=== PATIENT | female | born 1930 | race Caucasian/White ===

== ENCOUNTER 2018-12-24 10:20 | Inpatient (IN) | payer MEDICARE ==
[~2018-12-24] VITALS: Ht 157.5 cm; Wt 54.8 kg
[~2018-12-24 10:20] MED LIST: ACET325 PO; ALBU90OI INH; ALBU90OI61 INH; ALEN70 PO; ALPR.5; ALPR.5 PO; AMBIEN CR; AMLO5 PO; ASPI81CH PO; AZIT500 PO; BUDE10.22 INH; BUSP5; Bactrim 400-801 EACH PO; CEFA250SU PO; CEFU500 PO; CENTRUM SILVER1 EAC2 PO; CIPR500 PO; COUMADIN; Caltrate Plus1 EACH PO; Carvedilol6.25 MG PO; Colace250 MG PO; Coreg12.5 MG PO; DOXE25; DOXY100 PO; Dulcolax Stool100 MG PO; ESTMET; ESTRATEST; FAMO20 PO; FLUO20; Fosamax70 MG; HYDR1TAB94 PO; LEVFLO500; LEVSOD100; LEVSOD125 PO; LISI20; MEGE40SU PO; MEGE40T PO; MIRT30 PO; NITR.4TPA TOP; NYST100SU; Norco 10-325 T1 EACH PO; OXYC5 PO; Percocet 5-3251 EACH PO; Remeron45 MG PO; SIMV40 PO; Senna8.6 MG PO; Synthroid88 MCG PO; TAMO10 PO; TIOT18 INH; TRAM50 PO; TRIAZOLAM; Therapeutic M1 EAC5; Tylenol325 MG PO; UNKNOWN BP MED; Ventolin Soln3 ML INH; WARF1 PO; WARF4 PO; WARF5 PO; ZOLP10; ZOLP5 PO; Zocor20 MG PO; Zofran Odt4 MG SL; [UNRECOGNIZED DRUG - OTHER]
[2018-12-24 11:13] LABS: BASOPHILS ABSOLUTE AUTO 0.03 K/mm3 (0.00-0.23); BASOPHILS PERCENT AUTO 1 % (0-2); EOSINOPHILS ABSOLUTE AUTO 0.42 K/mm3 (0.00-0.68); EOSINOPHILS PERCENT AUTO 7 % (0-6); Hematocrit 41.3 % (33.0-51.0); Hemoglobin 13.3 g/dL (11.5-16.0); IMMATURE GRAN ABSOLUTE AUTO 0.02 K/mm3 (0.00-0.10); IMMATURE GRAN PERCENT AUTO 0 % (0-1); LYMPHOCYTES ABSOLUTE AUTO 1.04 K/mm3 (0.84-5.20); LYMPHOCYTES PERCENT AUTO 18 % (21-46); MONOCYTES ABSOLUTE AUTO 0.85 K/mm3 (0.16-1.47); MONOCYTES PERCENT AUTO 15 % (4-13); Mean Corpuscular HGB 31.2 pg (26.0-34.0); Mean Corpuscular HGB Conc 32.2 g/dL (31.5-36.5); Mean Corpuscular Volume 97 fL (80-100); Mean Platelet Volume 10.4 fL (9.1-12.4); NEUTROPHILS ABSOLUTE AUTO 3.37 K/mm3 (1.96-9.15); NEUTROPHILS PERCENT AUTO 59 % (41-73); Platelet Count 198 K/mm3 (150-400); RDW Coefficient Variation 13.7 % (11.7-14.2); RDW Standard Deviation 48.8 fL (35.1-46.3); Red Blood Cell Count 4.26 M/mm3 (3.80-5.20); White Blood Cell Count 5.73 K/mm3 (4.00-11.30)
[2018-12-24 11:37] LABS: Alanine Aminotransfer (ALT/SGP 22 U/L (12-78); Albumin, Blood 3.3 g/dL (3.4-5.0); Albumin/Globulin Ratio 0.9 (0.8-1.8); Alk Phos 71 U/L (50-136); Anion Gap 5 mmol/L (6-16); Aspartate Aminotrans (AST/SGOT 20 U/L (12-37); Bilirubin, Total 0.5 mg/dL (0.1-1.0); Blood Urea Nitrogen 18 mg/dL (8-24); Bun/Creatinine Ratio 26.8 (12.0-20.0); CO2, Blood 26 mmol/L (21-32); Calcium, Blood 8.9 mg/dL (8.5-10.1); Chloride, Blood 108 mmol/L (98-108); Creatinine, Blood 0.67 mg/dL (0.40-1.00); Globulin, Blood 3.7 g/dL (2.2-4.0); Glomerular Filtration Rate >60 (60-); Glucose, Blood 117 mg/dL (70-99); Potassium, Blood 4.1 mmol/L (3.5-5.5); Sodium, Blood 139 mmol/L (136-145); Troponin I <0.015 ng/mL (0.000-0.040)
[2018-12-24] MEDS ORDERED: ESZO2 PO (15:34)
[2018-12-24] MEDS ORDERED: WARF5 PO (15:36)
[2018-12-24] MEDS ORDERED: STIOLTO RESPIMAT4 GM INH (15:38)
[2018-12-24] MEDS ORDERED: Caltrate-600 W1 EACH PO (16:38)
[2018-12-24] MEDS ORDERED: Super B-50 Com1 EACH PO (16:39)
[2018-12-24 17:03] LABS: International Normalized Ratio 2.28; Prothrombin Time Results 22.4 Sec (9.7-11.5)
--- NOTE | 2018-12-24 19:35 | NUR ---
SHE ARRIVED TO 331 FROM THE ER AT 1735. SHE IS A&O AND STEADY ON HER FEET. HER IS WITH HER. SHE IS SOB WITH ANY ACTIVITY. BP HIGH ON ARRIVAL. COREG, COUMADIN AND IV LASIX HAVE BEEN STARTED. SHE IS [place]. AIR DIMINISHED BUT NO RALES OR WHEEZES HEARD. SHE WAS HUNGRY AND EATING DINNER SHORTLY AFTER ARRIVAL.TELE IS NSR. NO COMPLAINTS EXCEPT IT IS HARD FOR HER TO LAY DOWN.
[2018-12-25 03:13] LABS: BASOPHILS ABSOLUTE AUTO 0.04 K/mm3 (0.00-0.23); BASOPHILS PERCENT AUTO 1 % (0-2); EOSINOPHILS PERCENT AUTO 7 % (0-6); Hematocrit 45.6 % (33.0-51.0); IMMATURE GRAN ABSOLUTE AUTO 0.02 K/mm3 (0.00-0.10); IMMATURE GRAN PERCENT AUTO 0 % (0-1); LYMPHOCYTES PERCENT AUTO 17 % (21-46); MONOCYTES ABSOLUTE AUTO 1.14 K/mm3 (0.16-1.47); MONOCYTES PERCENT AUTO 15 % (4-13); Mean Corpuscular HGB 31.6 pg (26.0-34.0); Mean Corpuscular HGB Conc 32.9 g/dL (31.5-36.5); Mean Corpuscular Volume 96 fL (80-100); Mean Platelet Volume 10.3 fL (9.1-12.4); NEUTROPHILS ABSOLUTE AUTO 4.55 K/mm3 (1.96-9.15); NEUTROPHILS PERCENT AUTO 60 % (41-73); Platelet Count 224 K/mm3 (150-400); RDW Coefficient Variation 13.3 % (11.7-14.2); Red Blood Cell Count 4.74 M/mm3 (3.80-5.20); White Blood Cell Count 7.55 K/mm3 (4.00-11.30)
[2018-12-25 03:28] LABS: Anion Gap 6 mmol/L (6-16); Blood Urea Nitrogen 21 mg/dL (8-24); Bun/Creatinine Ratio 25.6 (12.0-20.0); CO2, Blood 29 mmol/L (21-32); Calcium, Blood 9.5 mg/dL (8.5-10.1); Chloride, Blood 103 mmol/L (98-108); Creatinine, Blood 0.82 mg/dL (0.40-1.00); Glomerular Filtration Rate >60 (60-); Glucose, Blood 98 mg/dL (70-99); Potassium, Blood 3.6 mmol/L (3.5-5.5); Sodium, Blood 138 mmol/L (136-145)
--- NOTE | 2018-12-25 05:11 | NUR ---
VSS, AFEBRILE, A/O, PT HAS BEEN C/O INSOMNIA AND SOB/EDWARD ALL NOC. PT WAS MEDICATED FOR INSOMNIA BEFORE MIDNIGHT, BUT THIS WAS INEFFECTIVE. PT HAS NOT SLEPT ALL NIGHT. PT OOB TO THE BR W/SBA, CAN BE IMPULSIVE AND NEEDS TO BE REMINDED TO CALL FOR HELP. PT HAS A FAIRLY STEADY GAIT, BUT REMAINS A HIGH FALL RISK DUE TO EDWARD. PT IS GETTING A BREATHING TREATMENT AT HER REQUEST. WILL REPORT TO ON-COMING SHIFT.
[2018-12-25 11:31] LABS: International Normalized Ratio 1.99; Prothrombin Time Results 19.8 Sec (9.7-11.5)
--- NOTE | 2018-12-25 19:37 | NUR ---
SHIFT SUMMARY PATIENT A&O X4, SBA TO BATHROOM. DENIES ANY PAIN OR NAUSEA. C/O SOB. O2 @ 1L TO KEEP SATS >90%. PATIENT WAS RUNNING 88-89 ON RA THIS AFTERNOON. MEDICATED PER Marlen MOON AT THE BEDSIDE. NO ACUTE CHANGES THIS SHIFT.
[2018-12-26 05:57] LABS: International Normalized Ratio 2.22; Prothrombin Time Results 21.9 Sec (9.7-11.5)
[2018-12-26 06:40] LABS: BASOPHILS ABSOLUTE AUTO 0.06 K/mm3 (0.00-0.23); BASOPHILS PERCENT AUTO 1 % (0-2); EOSINOPHILS ABSOLUTE AUTO 0.57 K/mm3 (0.00-0.68); EOSINOPHILS PERCENT AUTO 7 % (0-6); Hematocrit 47.3 % (33.0-51.0); Hemoglobin 15.7 g/dL (11.5-16.0); IMMATURE GRAN ABSOLUTE AUTO 0.06 K/mm3 (0.00-0.10); IMMATURE GRAN PERCENT AUTO 1 % (0-1); LYMPHOCYTES PERCENT AUTO 19 % (21-46); MONOCYTES ABSOLUTE AUTO 1.28 K/mm3 (0.16-1.47); MONOCYTES PERCENT AUTO 16 % (4-13); Mean Corpuscular HGB 31.5 pg (26.0-34.0); Mean Corpuscular HGB Conc 33.2 g/dL (31.5-36.5); Mean Corpuscular Volume 95 fL (80-100); Mean Platelet Volume 10.6 fL (9.1-12.4); NEUTROPHILS ABSOLUTE AUTO 4.61 K/mm3 (1.96-9.15); NEUTROPHILS PERCENT AUTO 57 % (41-73); Platelet Count 177 K/mm3 (150-400); RDW Coefficient Variation 13.5 % (11.7-14.2); RDW Standard Deviation 47.6 fL (35.1-46.3); Red Blood Cell Count 4.98 M/mm3 (3.80-5.20); White Blood Cell Count 8.08 K/mm3 (4.00-11.30)
[2018-12-26 06:58] LABS: Anion Gap 9 mmol/L (6-16); Blood Urea Nitrogen 30 mg/dL (8-24); Bun/Creatinine Ratio 32.3 (12.0-20.0); CO2, Blood 26 mmol/L (21-32); Calcium, Blood 9.1 mg/dL (8.5-10.1); Chloride, Blood 100 mmol/L (98-108); Creatinine, Blood 0.93 mg/dL (0.40-1.00); Glomerular Filtration Rate >60 (60-); Glucose, Blood 97 mg/dL (70-99); Potassium, Blood 3.9 mmol/L (3.5-5.5); Sodium, Blood 135 mmol/L (136-145)
--- NOTE | 2018-12-26 08:10 | NUR ---
88 year old Female who has hx CABG [address] and mitral valve replacement 2009 had echo done out pt December 20 with ejection fx of 54%. Wearing oxygen 2 l hs for noctural desats. Up with 1 assist to bathroom. Denies acute distress. continues on tel monitor with NSR, BBB with pvcs.
--- NOTE | 2018-12-26 18:49 | NUR ---
SHIFT SUMMARY LAURA WAS PUT ON A 1 LITER FLUID RESTRICTION TODAY, PT AWARE. COUGHING UP YELLOW SPUTUM, NEED SPUTUM CULTURE. DENIED PAIN. ON 1L AT REST. WALKED AROUND UNIT. DESATS TO 86 ON ROOM AIR IF AMBULATING. SBA. CARDIOLOGY CONSULT DONE. DAUGHTER IN LAW UPDATED. NEW PIV PLACED. AT BS FOR MOST OF THE DAY. WCTM
[2018-12-27 05:38] LABS: BASOPHILS ABSOLUTE AUTO 0.05 K/mm3 (0.00-0.23); BASOPHILS PERCENT AUTO 1 % (0-2); EOSINOPHILS ABSOLUTE AUTO 0.59 K/mm3 (0.00-0.68); EOSINOPHILS PERCENT AUTO 7 % (0-6); Hematocrit 46.4 % (33.0-51.0); Hemoglobin 15.1 g/dL (11.5-16.0); IMMATURE GRAN ABSOLUTE AUTO 0.03 K/mm3 (0.00-0.10); IMMATURE GRAN PERCENT AUTO 0 % (0-1); LYMPHOCYTES ABSOLUTE AUTO 1.09 K/mm3 (0.84-5.20); LYMPHOCYTES PERCENT AUTO 13 % (21-46); MONOCYTES ABSOLUTE AUTO 1.38 K/mm3 (0.16-1.47); MONOCYTES PERCENT AUTO 16 % (4-13); Mean Corpuscular HGB 31.1 pg (26.0-34.0); Mean Corpuscular HGB Conc 32.5 g/dL (31.5-36.5); Mean Corpuscular Volume 96 fL (80-100); Mean Platelet Volume 10.8 fL (9.1-12.4); NEUTROPHILS ABSOLUTE AUTO 5.37 K/mm3 (1.96-9.15); NEUTROPHILS PERCENT AUTO 63 % (41-73); Platelet Count 225 K/mm3 (150-400); RDW Coefficient Variation 13.3 % (11.7-14.2); RDW Standard Deviation 47.8 fL (35.1-46.3); Red Blood Cell Count 4.85 M/mm3 (3.80-5.20); White Blood Cell Count 8.51 K/mm3 (4.00-11.30)
[2018-12-27 05:54] LABS: International Normalized Ratio 2.93; Prothrombin Time Results 28.2 Sec (9.7-11.5)
[2018-12-27 06:01] LABS: Bun/Creatinine Ratio 40.1 (12.0-20.0); Calcium, Blood 9.2 mg/dL (8.5-10.1); Creatinine, Blood 0.97 mg/dL (0.40-1.00); Potassium, Blood 3.6 mmol/L (3.5-5.5)
--- NOTE | 2018-12-27 06:09 | NUR ---
PT continues sob and requiring 2 l nc to relieve SOB. She has rt middle lobe pneumonia on CXR on 12/24/18. On rocephin. Sputum sent for culture . denies pain, continues to be appropriate and ask for assist to go up to bathroom. Spouse in and supportive. Dtr in law is FRANCHISE DEVELOPMENT MANAGER and was updated on plan of care by day RN Lc. [facility]
--- NOTE | 2018-12-27 18:04 | NUR ---
NOTIFIED DR. ESPINOZA PT'S BP 85/48 AND [address] ESPINOZA SAID SHE WILL D/C LASIX AND TO ORDER 500ML BOLUS OF NORMAL SALINE. DR. ESPINOZA SAID TO CONTINUE TO MONITOR BP AND TO NOTIFY THE DOCTOR PLANT MAINTENANCE MANAGER IF BP STILL RUNNING LOW AFTER BOLUS IS COMPLETED. NO OTHER NEW ORDERS AT THIS TIME.
--- NOTE | 2018-12-27 19:04 | NUR ---
SHIFT SUMMARY- PT C/O BACK PAIN. MEDS GIVEN PER EMAR. PT DENIES N/V. REPORTS SOB. 94% ON 2L O2 NC. SBA TO THE BATHROOM. NOTIFIED DR. ESPINOZA PT'S BP 85/48 THIS PM. SEE PREVIOUS NOTE. NOTIFIED NIGHT RN DR. ESPINOZA SAID TO RECHECK PT'S BP AFTER BOLUS COMPLETE AND TO NOTIFY DRBernabe CRM COORDINATOR IF BP REMAINS LOW. SPOUSE AT BEDSIDE. NO OTHER SIGNIFICANT CHANGES THIS SHIFT.
--- NOTE | 2018-12-28 04:24 | NUR ---
SHIFT SUMMARY: PT HYPOTENSIVE EARLIER IN SHIFT, HOWEVER HAS SIGNIFICANTLY IMPROVED AFTER 500 CC FLUID BOLUS THAT FINISHED AT SHIFT CHANGE. LATEST BP OF 146/65. PT C/O CONSTANT DRY COUGH, ROBITUSSIN UNSUCCESSFUL. RECIEVED ORDER FOR TESSALON. ADMINISTERED ROBITUSSIN AND TESSALON TOGETHER WHICH PROVIDED LASTING RELIEF T/O TONIGHT. PT BECOMES SOB c EXERTION, CONT PULSE O2 DROPS DOWN TO LOW 80s WHILE AMBULATING TO THE BR. ON 2L VIA NC. LS WHEEZE AND COARSE T/O. ADMINISTERED XANAX AT BEDTIME FOR ANXIETY PER PT REQUEST. NO OTHER CHANGES TO REPORT. WILL CONT TO MONITOR AND PROVIDE CARE UNTIL PRESUMED BY ONCOMING RN.
[2018-12-28 05:37] LABS: BASOPHILS ABSOLUTE AUTO 0.05 K/mm3 (0.00-0.23); BASOPHILS PERCENT AUTO 1 % (0-2); EOSINOPHILS ABSOLUTE AUTO 0.45 K/mm3 (0.00-0.68); EOSINOPHILS PERCENT AUTO 6 % (0-6); Hematocrit 44.4 % (33.0-51.0); Hemoglobin 14.4 g/dL (11.5-16.0); IMMATURE GRAN ABSOLUTE AUTO 0.03 K/mm3 (0.00-0.10); IMMATURE GRAN PERCENT AUTO 0 % (0-1); LYMPHOCYTES ABSOLUTE AUTO 1.49 K/mm3 (0.84-5.20); LYMPHOCYTES PERCENT AUTO 21 % (21-46); MONOCYTES ABSOLUTE AUTO 1.17 K/mm3 (0.16-1.47); MONOCYTES PERCENT AUTO 17 % (4-13); Mean Corpuscular HGB Conc 32.4 g/dL (31.5-36.5); Mean Platelet Volume 10.4 fL (9.1-12.4); NEUTROPHILS PERCENT AUTO 55 % (41-73); Platelet Count 181 K/mm3 (150-400); RDW Coefficient Variation 13.4 % (11.7-14.2); RDW Standard Deviation 48.6 fL (35.1-46.3); White Blood Cell Count 6.99 K/mm3 (4.00-11.30)
[2018-12-28 05:40] LABS: Mean Corpuscular Volume 99 fL (80-100)
[2018-12-28 05:51] LABS: International Normalized Ratio 3.31; Prothrombin Time Results 31.5 Sec (9.7-11.5)
[2018-12-28 06:05] LABS: Albumin, Blood 3.2 g/dL (3.4-5.0); Albumin/Globulin Ratio 0.8 (0.8-1.8); Bilirubin, Total 0.3 mg/dL (0.1-1.0); Bun/Creatinine Ratio 31.5 (12.0-20.0); Calcium, Blood 8.7 mg/dL (8.5-10.1); Creatinine, Blood 1.65 mg/dL (0.40-1.00); Potassium, Blood 3.8 mmol/L (3.5-5.5); Total Protein, Blood 7.2 g/dL (6.4-8.2)
[2018-12-28 13:44] LABS: Adenovirus Not Detected (NOT DETECT); Bordetella pertussis Not Detected (NOT DETECT); Chlamydophila pneumoniae Not Detected (NOT DETECT); Coronavirus 229E Not Detected (NOT DETECT); Coronavirus HKU1 Not Detected (NOT DETECT); Coronavirus NL63 Not Detected (NOT DETECT); Coronavirus OC43 Not Detected (NOT DETECT); Human Metapneumovirus Not Detected (NOT DETECT); Human Rhinovirus/Enterovirus Not Detected (NOT DETECT); Influenza A Not Detected (NOT DETECT); Influenza A/2009-H1 Not Detected (NOT DETECT); Influenza A/H1 Not Detected (NOT DETECT); Influenza A/H3 Not Detected (NOT DETECT); Influenza B Not Detected (NOT DETECT); Mycoplasma pneumoniae Not Detected (NOT DETECT); Parainfluenza Virus 1 Not Detected (NOT DETECT); Parainfluenza Virus 2 Not Detected (NOT DETECT); Parainfluenza Virus 3 Detected (NOT DETECT); Parainfluenza Virus 4 Not Detected (NOT DETECT); Respiratory Syncytial Virus Not Detected (NOT DETECT)
--- NOTE | 2018-12-28 18:02 | NUR ---
END OF SHIFT SUMMARY: PT IS A&OX3. PT HAS BEEN CALM AND COOPERATIVE THROUGHT THIS SHIFT. PT'S HAS BEEN IN THE ROOM THROUGHOUT MOST OF THE DAY. PT HAS ALTERNATED SITTING ON THE EDGE OF THE BED AND SITTING IN THE BED. PT SAT IN CHAIR FOR ABOUT A HALF AN HOUR THIS AFTERNOON. PT HAS HAD COUGHING EPISODES THAT HAVE IMPROVED WITH R/T TREATMENT. PT HAS DENIED PAIN THIS SHIFT. O2 SAT 94-98 ON 2L. WILL CONTINUE TO MINITOR.
--- NOTE | 2018-12-28 18:22 | NUR ---
SN ASSESSMENT I WAS PRESENT DURING THE SN YOUNG'S ASSESSMENT AND AGREE WITH THE ASSESSMENT
[2018-12-29 05:15] LABS: BASOPHILS ABSOLUTE AUTO 0.06 K/mm3 (0.00-0.23); BASOPHILS PERCENT AUTO 1 % (0-2); EOSINOPHILS ABSOLUTE AUTO 0.76 K/mm3 (0.00-0.68); EOSINOPHILS PERCENT AUTO 13 % (0-6); Hematocrit 41.5 % (33.0-51.0); Hemoglobin 13.7 g/dL (11.5-16.0); IMMATURE GRAN ABSOLUTE AUTO 0.02 K/mm3 (0.00-0.10); IMMATURE GRAN PERCENT AUTO 0 % (0-1); LYMPHOCYTES ABSOLUTE AUTO 2.02 K/mm3 (0.84-5.20); LYMPHOCYTES PERCENT AUTO 34 % (21-46); MONOCYTES PERCENT AUTO 13 % (4-13); Mean Corpuscular HGB 31.9 pg (26.0-34.0); Mean Corpuscular Volume 97 fL (80-100); Mean Platelet Volume 10.5 fL (9.1-12.4); NEUTROPHILS PERCENT AUTO 39 % (41-73); Platelet Count 184 K/mm3 (150-400); RDW Coefficient Variation 13.6 % (11.7-14.2); RDW Standard Deviation 48.5 fL (35.1-46.3); Red Blood Cell Count 4.29 M/mm3 (3.80-5.20); White Blood Cell Count 5.96 K/mm3 (4.00-11.30)
[2018-12-29 05:32] LABS: International Normalized Ratio 3.14
[2018-12-29 05:34] LABS: Bun/Creatinine Ratio 42.9 (12.0-20.0); Calcium, Blood 8.7 mg/dL (8.5-10.1); Creatinine, Blood 1.19 mg/dL (0.40-1.00); Potassium, Blood 3.8 mmol/L (3.5-5.5)
--- NOTE | 2018-12-29 06:43 | NUR ---
SHIFT SUMMARY: PT W/O ACUTE CHANGES THRU THE NIGHT. ON 2L VIA NC AND O2 SATS REMAINING >92%. 98% AT REST; IN THE HIGH 80s c EXERTION. TREATED 1X FOR DRY COUGH c TESSALON AND ROBITUSSIN PER ORDERS; SEE EMAR. ADMINISTERED AMBIEN FOR SLEEP AID PER REQUEST. WILL CONT TO MONITOR AND PROVIDE CARE UNTIL RESUMED BY ONCOMING RN.
--- NOTE | 2018-12-29 18:06 | NUR ---
End of shift summary: Pt was awake, A&O throughout this shift. Pt is [place], calm, cooperative, and appropriate. Pt has had improved respiratory effort this shift, requesting only one breathing treatment from RT (3 on previous day). Pt has had family in the room for most of the shift. Pt has alternated sitting in bed and sitting on the side of the bed. Pt was weaned from O2 early this afternoon by Dr. Puckett, O2 stats dropped to 86 about 30 minutes later. Pt was placed back on 2L O2, reduced to 1L about an hour later. Dr. Puckett was notified and agreed. Pt states no additional needs at this time. Will continue to monitor.
[2018-12-30 05:38] LABS: International Normalized Ratio 2.07; Prothrombin Time Results 20.5 Sec (9.7-11.5)
--- NOTE | 2018-12-30 07:41 | NUR ---
SHIFT SUMMARY: PT REMIAINS ON 1L VIA NC. ROOM AIR TRIAL UNSUCCESSFUL, PT O2 SATS DROP DOWN TO 80s AND PT BECOMES SOB. PT SOB c ALL ACTIVITY AND SHORT DISTANCES OF AMBULATION. VSS. CONT PULSE OXIMETRY IN PLACE, O2 SATS >92%. TREATED 1X FOR DRY COUGH c TESSALON PERLES AND ROBITUSSIN. LS COARSE AND WHEEZE T/O. WILL CONT TO MONITOR AND PROVIDE CARE UNTIL PRESUMED BY ONCOMING RN.
[2018-12-30] MEDS ORDERED: FURO20 PO (13:28)
[2018-12-30] MEDS ORDERED: Micro-K10 MEQ PO (13:29)
[2018-12-30] MEDS ORDERED: ALBU3IS INH (13:29)
[2018-12-30] MEDS ORDERED: BENZ100A PO (13:35)
[2018-12-30] MEDS ORDERED: LISI5 PO (13:35)
--- NOTE | 2018-12-30 15:25 | NUR ---
REVIEW D'C W/PATIENT, AND SON. AWARE HAVE F/U APPT ON SUNDAY W/ @ 2:15. AWARE TO CLERICAL ADMINISTRATIVE ASSISTANT MEDS AT [facility]. ANSWER ALL QUESTIONS. GETTING DRESSED AND WILL CALL [employer].
== END 2018-12-30 15:37 | disposition home or self-care (01) | DRG 865 ==
LOC: ER 10:20 → MEDS 16:20 → ENPENDDIS 12-30 12:13 → MEDS 12-30 15:37
PROVIDERS: Hospitalist; Physician Assistant; ADMIT Internal Medicine
DX: B34.8 Other viral infections of unspecified site (principal); J96.01 Acute respiratory failure with hypoxia; I50.22 Chronic systolic (congestive) heart failure; I25.10 Atherosclerotic heart disease of native coronary artery without angina pectoris; I11.0 Hypertensive heart disease with heart failure; I35.0 Nonrheumatic aortic (valve) stenosis; E03.9 Hypothyroidism, unspecified; E78.5 Hyperlipidemia, unspecified; Z86.73 Personal history of transient ischemic attack (TIA), and cerebral infarction without residual deficits; I25.2 Old myocardial infarction; Z95.5 Presence of coronary angioplasty implant and graft; Z95.1 Presence of aortocoronary bypass graft; Z95.2 Presence of prosthetic heart valve; Z87.891 Personal history of nicotine dependence; Z79.01 Long term (current) use of anticoagulants
CPT/HCPCS: 36415; 71046; 80048; 80053; 80061; 80076; 83880; 84145; 84443; 84484; 85025; 85610; 87070; 87081; 87205; 87486; 87581; 87633; 87798; 93005; 93010; 93306; 94640; 94667; 94760; 94761; 94762; 99285-25; J0456; J0696; J1940; J7030; J7050

== ENCOUNTER 2019-01-15 17:59 | Emergency (ER) | payer MEDICARE ==
[~2019-01-15] VITALS: Ht 157.5 cm; Wt 54.4 kg
[~2019-01-15 17:59] MED LIST changes: +ALBU3IS INH; +BENZ100A PO; +Caltrate-600 W1 EACH PO; +ESZO2 PO; +FURO20 PO; +LISI5 PO; +Micro-K10 MEQ PO; +STIOLTO RESPIMAT4 GM INH; +Super B-50 Com1 EACH PO
[2019-01-15] MEDS ORDERED: LEVO750 PO (18:41)
== END 2019-01-15 18:43 | disposition home or self-care (01) ==
LOC: ER 17:59
DX: L03.311 Cellulitis of abdominal wall (principal); K42.9 Umbilical hernia without obstruction or gangrene; Z88.6 Allergy status to analgesic agent
CPT/HCPCS: 99282

== ENCOUNTER 2019-04-28 14:05 | Emergency (ER) | payer MEDICARE ==
[~2019-04-28] VITALS: Ht 154.9 cm; Wt 49.9 kg
[~2019-04-28 14:05] MED LIST changes: +Coreg CR20 MG PO; -Coreg12.5 MG PO; +LEVO750 PO
[2019-04-28 14:52] LABS: BASOPHILS ABSOLUTE AUTO 0.05 K/mm3 (0.00-0.23); BASOPHILS PERCENT AUTO 1 % (0-2); EOSINOPHILS ABSOLUTE AUTO 0.24 K/mm3 (0.00-0.68); EOSINOPHILS PERCENT AUTO 2 % (0-6); Hematocrit 44.5 % (33.0-51.0); Hemoglobin 14.9 g/dL (11.5-16.0); IMMATURE GRAN ABSOLUTE AUTO 0.05 K/mm3 (0.00-0.10); IMMATURE GRAN PERCENT AUTO 1 % (0-1); LYMPHOCYTES ABSOLUTE AUTO 1.48 K/mm3 (0.84-5.20); LYMPHOCYTES PERCENT AUTO 14 % (21-46); MONOCYTES ABSOLUTE AUTO 0.93 K/mm3 (0.16-1.47); MONOCYTES PERCENT AUTO 9 % (4-13); Mean Corpuscular HGB 33.3 pg (26.0-34.0); Mean Corpuscular HGB Conc 33.5 g/dL (31.5-36.5); Mean Corpuscular Volume 100 fL (80-100); Mean Platelet Volume 10.3 fL (9.1-12.4); NEUTROPHILS ABSOLUTE AUTO 7.59 K/mm3 (1.96-9.15); NEUTROPHILS PERCENT AUTO 73 % (41-73); Platelet Count 285 K/mm3 (150-400); RDW Coefficient Variation 12.8 % (11.7-14.2); RDW Standard Deviation 46.8 fL (35.1-46.3); Red Blood Cell Count 4.47 M/mm3 (3.80-5.20); White Blood Cell Count 10.34 K/mm3 (4.00-11.30)
[2019-04-28 15:02] LABS: Source, Urine Clean Catch
[2019-04-28 15:04] LABS: International Normalized Ratio 3.06; Prothrombin Time Results 29.3 Sec (9.7-11.5)
[2019-04-28 15:12] LABS: Bilirubin, Urine Neg (Neg); Blood, Urine Neg (Neg); Glucose Qualitative, Urine Neg (Neg); Ketones, Urine Neg (Neg); Leukocyte Esterase, Urine 3+ (Neg); Nitrite, Urine Neg (Neg); Protein, Urine 1+ (Neg); Urobilinogen, Urine NORM (Normal)
[2019-04-28 15:13] LABS: Bilirubin, Total 0.5 mg/dL (0.1-1.0); Bun/Creatinine Ratio 23.8 (12.0-20.0); Calcium, Blood 9.5 mg/dL (8.5-10.1); Creatinine, Blood 1.01 mg/dL (0.40-1.00); Globulin, Blood 4.1 g/dL (2.2-4.0); Total Protein, Blood 8.1 g/dL (6.4-8.2)
[2019-04-28 15:21] LABS: Appearance, Urine Clear (Clear); Color, Urine Yellow (P-Yellow)
[2019-04-28 15:22] LABS: Bacteria Few /hpf; Squamous Epithelial Cells Few /hpf (Few)
[2019-04-28] MEDS ORDERED: MOVANTIK25 MG PO (16:38)
[2019-04-28] MEDS ORDERED: LORA1 SL (16:40)
[2019-04-28 19:25] LABS: Campylobacter Sp Not Detected (NOT DETECT)
[2019-04-28 19:26] LABS: Adenovirus F 40/41 Not Detected (NOT DETECT); Astrovirus Not Detected (NOT DETECT); Cryptosporidium Not Detected (NOT DETECT); Cyclospora Cayetanensis Not Detected (NOT DETECT); E. Coli O157 Not Detected (NOT DETECT); Entamoeba Histolytica Not Detected (NOT DETECT); Enteroaggregative E. coli-EAEC Not Detected (NOT DETECT); Enteropathogenic E. coli-EPEC Not Detected (NOT DETECT); Enterotoxigenic E. coli-ETEC Not Detected (NOT DETECT); Giardia Lamblia Not Detected (NOT DETECT); Norovirus GI/GII Not Detected (NOT DETECT); Plesiomonas Shigelloides Not Detected (NOT DETECT); Rotavirus A Not Detected (NOT DETECT); Salmonella Sp Not Detected (NOT DETECT); Sapovirus Not Detected (NOT DETECT); Shiga Toxin-prod E. coli-STEC Not Detected (NOT DETECT); Shigella/Enteroin E. coli-EIEC Not Detected (NOT DETECT); Vibrio Cholerae Not Detected (NOT DETECT); Vibrio Sp Not Detected (NOT DETECT); Yersinia Enterocolitica Not Detected (NOT DETECT)
== END 2019-04-28 18:20 | disposition home or self-care (01) ==
LOC: ER 14:05
PROVIDERS: Emergency Medicine; Physician Assistant
DX: R19.7 Diarrhea, unspecified (principal); R10.9 Unspecified abdominal pain; I25.2 Old myocardial infarction; Z86.73 Personal history of transient ischemic attack (TIA), and cerebral infarction without residual deficits; G47.00 Insomnia, unspecified; Z85.3 Personal history of malignant neoplasm of breast; Z87.891 Personal history of nicotine dependence; Z88.8 Allergy status to other drugs, medicaments and biological substances; Z79.899 Other long term (current) drug therapy; Z79.01 Long term (current) use of anticoagulants
CPT/HCPCS: 0097U; 36415; 80053; 81001; 83690; 85025; 85610; 87086; 99284

== ENCOUNTER 2019-05-21 14:57 | Emergency (ER) | payer MEDICARE ==
[~2019-05-21] VITALS: Ht 157.5 cm; Wt 51.3 kg
[~2019-05-21 14:57] MED LIST changes: +LORA1 SL; +MOVANTIK25 MG PO
[2019-05-21 16:08] LABS: BASOPHILS ABSOLUTE AUTO 0.04 K/mm3 (0.00-0.23); BASOPHILS PERCENT AUTO 1 % (0-2); EOSINOPHILS ABSOLUTE AUTO 0.12 K/mm3 (0.00-0.68); EOSINOPHILS PERCENT AUTO 2 % (0-6); Hematocrit 37.6 % (33.0-51.0); Hemoglobin 12.4 g/dL (11.5-16.0); IMMATURE GRAN ABSOLUTE AUTO 0.03 K/mm3 (0.00-0.10); IMMATURE GRAN PERCENT AUTO 0 % (0-1); LYMPHOCYTES ABSOLUTE AUTO 1.87 K/mm3 (0.84-5.20); LYMPHOCYTES PERCENT AUTO 24 % (21-46); MONOCYTES ABSOLUTE AUTO 0.86 K/mm3 (0.16-1.47); MONOCYTES PERCENT AUTO 11 % (4-13); Mean Corpuscular HGB 33.4 pg (26.0-34.0); Mean Corpuscular Volume 101 fL (80-100); Mean Platelet Volume 10.5 fL (9.1-12.4); NEUTROPHILS ABSOLUTE AUTO 4.75 K/mm3 (1.96-9.15); NEUTROPHILS PERCENT AUTO 62 % (41-73); Platelet Count 275 K/mm3 (150-400); RDW Coefficient Variation 13.9 % (11.7-14.2); RDW Standard Deviation 51.5 fL (35.1-46.3); Red Blood Cell Count 3.71 M/mm3 (3.80-5.20); White Blood Cell Count 7.67 K/mm3 (4.00-11.30)
[2019-05-21 16:41] LABS: Albumin, Blood 3.6 g/dL (3.4-5.0); Albumin/Globulin Ratio 1.1 (0.8-1.8); Bilirubin, Total 0.5 mg/dL (0.1-1.0); Bun/Creatinine Ratio 25.2 (12.0-20.0); Creatinine, Blood 1.15 mg/dL (0.40-1.00); Globulin, Blood 3.3 g/dL (2.2-4.0); Potassium, Blood 4.4 mmol/L (3.5-5.5); Total Protein, Blood 6.9 g/dL (6.4-8.2)
[2019-05-21 16:42] LABS: Prothrombin Time Results >90.0 Sec (9.7-11.5)
[2019-05-21 16:43] LABS: International Normalized Ratio No Calc
[2019-05-21] MEDS ORDERED: Lomotil Tablet1 EACH PO (19:18)
[2019-05-21] MEDS ORDERED: ETHACRYNIC ACID25 MG PO (19:18)
== END 2019-05-21 20:44 | disposition home or self-care (01) ==
LOC: ER 14:57
PROVIDERS: Emergency Medicine
DX: D68.8 Other specified coagulation defects (principal); I48.91 Unspecified atrial fibrillation; R19.7 Diarrhea, unspecified; Z88.8 Allergy status to other drugs, medicaments and biological substances; Z79.899 Other long term (current) drug therapy; Z79.01 Long term (current) use of anticoagulants; I25.2 Old myocardial infarction; Z86.73 Personal history of transient ischemic attack (TIA), and cerebral infarction without residual deficits; Z85.3 Personal history of malignant neoplasm of breast; Z87.891 Personal history of nicotine dependence
CPT/HCPCS: 36415; 80053; 85025; 85610; 93005; 93010; 99283-25

== ENCOUNTER 2019-05-23 06:36 | Emergency (ER) | payer MEDICARE ==
[~2019-05-23] VITALS: Ht 154.9 cm; Wt 45.4 kg
[~2019-05-23 06:36] MED LIST changes: +ETHACRYNIC ACID25 MG PO; +Lomotil Tablet1 EACH PO
[2019-05-23] MEDS ORDERED: Coreg12.5 MG PO (06:53)
[2019-05-23] MEDS ORDERED: CENTRUM SILVER1 EAC2 PO (06:55)
[2019-05-23] MEDS ORDERED: Simvastatin20 MG PO (06:55)
[2019-05-23 08:27] LABS: BASOPHILS ABSOLUTE AUTO 0.03 K/mm3 (0.00-0.23); BASOPHILS PERCENT AUTO 0 % (0-2); EOSINOPHILS ABSOLUTE AUTO 0.13 K/mm3 (0.00-0.68); EOSINOPHILS PERCENT AUTO 2 % (0-6); Hematocrit 33.8 % (33.0-51.0); Hemoglobin 11.2 g/dL (11.5-16.0); IMMATURE GRAN ABSOLUTE AUTO 0.04 K/mm3 (0.00-0.10); IMMATURE GRAN PERCENT AUTO 1 % (0-1); LYMPHOCYTES ABSOLUTE AUTO 1.27 K/mm3 (0.84-5.20); LYMPHOCYTES PERCENT AUTO 16 % (21-46); MONOCYTES ABSOLUTE AUTO 0.83 K/mm3 (0.16-1.47); MONOCYTES PERCENT AUTO 10 % (4-13); Mean Corpuscular HGB Conc 33.1 g/dL (31.5-36.5); Mean Corpuscular Volume 100 fL (80-100); Mean Platelet Volume 10.8 fL (9.1-12.4); NEUTROPHILS ABSOLUTE AUTO 5.74 K/mm3 (1.96-9.15); NEUTROPHILS PERCENT AUTO 71 % (41-73); Platelet Count 210 K/mm3 (150-400); RDW Coefficient Variation 14.1 % (11.7-14.2); RDW Standard Deviation 51.2 fL (35.1-46.3); Red Blood Cell Count 3.39 M/mm3 (3.80-5.20); White Blood Cell Count 8.04 K/mm3 (4.00-11.30)
[2019-05-23 08:49] LABS: Albumin, Blood 3.2 g/dL (3.4-5.0); Albumin/Globulin Ratio 1.1 (0.8-1.8); Bilirubin, Total 0.5 mg/dL (0.1-1.0); Bun/Creatinine Ratio 26.5 (12.0-20.0); Calcium, Blood 8.9 mg/dL (8.5-10.1); Creatinine, Blood 1.02 mg/dL (0.40-1.00); Potassium, Blood 3.8 mmol/L (3.5-5.5); Total Protein, Blood 6.2 g/dL (6.4-8.2)
[2019-05-23 10:08] LABS: Prothrombin Time Results 15.6 Sec (9.7-11.5)
[2019-05-23 10:09] LABS: International Normalized Ratio 1.53
[2019-05-23] MEDS ORDERED: Zofran4 MG PO (10:17)
== END 2019-05-23 10:35 | disposition home or self-care (01) ==
LOC: ER 06:36
PROVIDERS: Emergency Medicine
DX: K52.9 Noninfective gastroenteritis and colitis, unspecified (principal); E86.0 Dehydration; D64.9 Anemia, unspecified; I25.2 Old myocardial infarction; Z86.73 Personal history of transient ischemic attack (TIA), and cerebral infarction without residual deficits; Z85.3 Personal history of malignant neoplasm of breast; Z87.891 Personal history of nicotine dependence; Z88.8 Allergy status to other drugs, medicaments and biological substances; Z79.899 Other long term (current) drug therapy; Z79.01 Long term (current) use of anticoagulants
CPT/HCPCS: 36415; 80053; 85025; 85610; 96360; 99284-25; J7030

== ENCOUNTER → 2019-06-09 | Outpatient (CLI) | payer MEDICARE ==
[~2019-06-09] MED LIST changes: +Coreg12.5 MG PO; +Simvastatin20 MG PO; +Zofran4 MG PO
[2019-06-10 19:57] LABS: Adenovirus F 40/41 Not Detected (NOT DETECT); Astrovirus Not Detected (NOT DETECT); Campylobacter Sp Not Detected (NOT DETECT); Cryptosporidium Not Detected (NOT DETECT); Cyclospora Cayetanensis Not Detected (NOT DETECT); E. Coli O157 Not Detected (NOT DETECT); Entamoeba Histolytica Not Detected (NOT DETECT); Enteroaggregative E. coli-EAEC Not Detected (NOT DETECT); Enteropathogenic E. coli-EPEC Not Detected (NOT DETECT); Enterotoxigenic E. coli-ETEC Not Detected (NOT DETECT); Giardia Lamblia Not Detected (NOT DETECT); Norovirus GI/GII Not Detected (NOT DETECT); Plesiomonas Shigelloides Not Detected (NOT DETECT); Rotavirus A Not Detected (NOT DETECT); Salmonella Sp Not Detected (NOT DETECT); Sapovirus Not Detected (NOT DETECT); Shiga Toxin-prod E. coli-STEC Not Detected (NOT DETECT); Shigella/Enteroin E. coli-EIEC Not Detected (NOT DETECT); Vibrio Cholerae Not Detected (NOT DETECT); Vibrio Sp Not Detected (NOT DETECT); Yersinia Enterocolitica Not Detected (NOT DETECT)
== END | disposition home or self-care (01) ==
LOC: LAB SHORT 20:30 → LAB 20:30
PROVIDERS: Student in an Organized Health Care Education/Training Program
DX: K52.9 Noninfective gastroenteritis and colitis, unspecified (principal)
CPT/HCPCS: 0097U

== ENCOUNTER → 2019-07-24 | Outpatient (CLI) | payer MEDICARE ==
[~2019-07-24] MED LIST changes: -ALBU3IS INH; +ALBU3IS NEB; +Augmentin 875-1 EACH PO; +Cholestyramine378 GM PO; +Coumadin2 MG PO; +PROM25 PO; +Vancocin HCl125 MG PO
[2019-07-26 14:06] LABS: Stool Occult Bld Immuno 1 Positive (NEGATIVE)
== END | disposition home or self-care (01) ==
LOC: LAB SHORT 12:00 → LAB 12:00
PROVIDERS: Student in an Organized Health Care Education/Training Program
DX: Z12.11 Encounter for screening for malignant neoplasm of colon (principal); K52.9 Noninfective gastroenteritis and colitis, unspecified
CPT/HCPCS: 87338; G0328

== ENCOUNTER 2019-07-30 10:21 | Emergency (ER) | payer MEDICARE ==
[~2019-07-30] VITALS: Ht 157.5 cm; Wt 44.5 kg
[~2019-07-30 10:21] MED LIST changes: -Augmentin 875-1 EACH PO; -PROM25 PO; -Vancocin HCl125 MG PO
[2019-07-30 11:40] LABS: BASOPHILS ABSOLUTE AUTO 0.04 K/mm3 (0.00-0.23); BASOPHILS PERCENT AUTO 0 % (0-2); EOSINOPHILS ABSOLUTE AUTO 0.13 K/mm3 (0.00-0.68); EOSINOPHILS PERCENT AUTO 1 % (0-6); Hematocrit 36.1 % (33.0-51.0); Hemoglobin 11.5 g/dL (11.5-16.0); IMMATURE GRAN ABSOLUTE AUTO 0.06 K/mm3 (0.00-0.10); IMMATURE GRAN PERCENT AUTO 1 % (0-1); LYMPHOCYTES ABSOLUTE AUTO 1.35 K/mm3 (0.84-5.20); LYMPHOCYTES PERCENT AUTO 12 % (21-46); MONOCYTES ABSOLUTE AUTO 0.91 K/mm3 (0.16-1.47); MONOCYTES PERCENT AUTO 8 % (4-13); Mean Corpuscular HGB 31.9 pg (26.0-34.0); Mean Corpuscular HGB Conc 31.9 g/dL (31.5-36.5); Mean Corpuscular Volume 100 fL (80-100); NEUTROPHILS ABSOLUTE AUTO 8.38 K/mm3 (1.96-9.15); NEUTROPHILS PERCENT AUTO 77 % (41-73); Platelet Count 230 K/mm3 (150-400); RDW Standard Deviation 51.5 fL (35.1-46.3); Red Blood Cell Count 3.61 M/mm3 (3.80-5.20); White Blood Cell Count 10.87 K/mm3 (4.00-11.30)
[2019-07-30 11:50] LABS: Albumin, Blood 2.3 g/dL (3.4-5.0); Albumin/Globulin Ratio 0.6 (0.8-1.8); Bilirubin, Total 0.4 mg/dL (0.1-1.0); Bun/Creatinine Ratio 17.5 (12.0-20.0); Calcium, Blood 8.3 mg/dL (8.5-10.1); Creatinine, Blood 0.97 mg/dL (0.40-1.00); Globulin, Blood 3.6 g/dL (2.2-4.0); Potassium, Blood 3.2 mmol/L (3.5-5.5); Total Protein, Blood 5.9 g/dL (6.4-8.2)
[2019-07-30] MEDS ORDERED: PROM25 PO (12:00)
[2019-07-30] MEDS ORDERED: Augmentin 875-1 EACH PO (12:36)
[2019-07-30 12:47] LABS: International Normalized Ratio 2.17; Prothrombin Time Results 21.4 Sec (9.7-11.5)
[2019-08-08] MEDS ORDERED: Vancocin HCl125 MG PO (14:48)
== END 2019-07-30 14:10 | disposition home or self-care (01) ==
LOC: ER 10:21
PROVIDERS: Emergency Medicine
DX: K51.00 Ulcerative (chronic) pancolitis without complications (principal); K52.9 Noninfective gastroenteritis and colitis, unspecified; E87.6 Hypokalemia; I25.2 Old myocardial infarction; Z88.8 Allergy status to other drugs, medicaments and biological substances; Z79.899 Other long term (current) drug therapy; Z79.01 Long term (current) use of anticoagulants; Z79.51 Long term (current) use of inhaled steroids; Z86.73 Personal history of transient ischemic attack (TIA), and cerebral infarction without residual deficits
CPT/HCPCS: 74176; 80053; 83690; 85025; 85610; 96360; 96361; 99284-25; J7030

== ENCOUNTER → 2019-08-07 | Outpatient (CLI) | payer MEDICARE ==
[~2019-08-07] MED LIST changes: +Augmentin 875-1 EACH PO; +PROM25 PO; +Vancocin HCl125 MG PO
[2019-08-07 19:50] LABS: Campylobacter Sp Not Detected (NOT DETECT); Cryptosporidium Not Detected (NOT DETECT); E. Coli O157 Not Detected (NOT DETECT); Enteroaggregative E. coli-EAEC Not Detected (NOT DETECT); Enteropathogenic E. coli-EPEC Not Detected (NOT DETECT); Enterotoxigenic E. coli-ETEC Not Detected (NOT DETECT); Plesiomonas Shigelloides Not Detected (NOT DETECT); Salmonella Sp Not Detected (NOT DETECT); Shiga Toxin-prod E. coli-STEC Not Detected (NOT DETECT); Shigella/Enteroin E. coli-EIEC Not Detected (NOT DETECT); Vibrio Cholerae Not Detected (NOT DETECT); Vibrio Sp Not Detected (NOT DETECT); Yersinia Enterocolitica Not Detected (NOT DETECT)
[2019-08-07 19:51] LABS: Adenovirus F 40/41 Not Detected (NOT DETECT); Astrovirus Not Detected (NOT DETECT); Cyclospora Cayetanensis Not Detected (NOT DETECT); Entamoeba Histolytica Not Detected (NOT DETECT); Giardia Lamblia Not Detected (NOT DETECT); Norovirus GI/GII Not Detected (NOT DETECT); Rotavirus A Not Detected (NOT DETECT); Sapovirus Not Detected (NOT DETECT)
== END | disposition home or self-care (01) ==
LOC: LAB SHORT 14:13 → LAB 14:13 → LAB FUT 07-31 17:10
PROVIDERS: Student in an Organized Health Care Education/Training Program
DX: K52.9 Noninfective gastroenteritis and colitis, unspecified (principal)
CPT/HCPCS: 0097U; 87324

== ENCOUNTER 2019-08-10 14:32 | Emergency (ER) | payer MEDICARE ==
[~2019-08-10] VITALS: Ht 157.5 cm; Wt 43.1 kg
[2019-08-10] MEDS ORDERED: WARF1 PO (14:47)
[2019-08-10 15:14] LABS: BASOPHILS ABSOLUTE AUTO 0.05 K/mm3 (0.00-0.23); BASOPHILS PERCENT AUTO 1 % (0-2); EOSINOPHILS PERCENT AUTO 1 % (0-6); Hematocrit 36.1 % (33.0-51.0); Hemoglobin 11.6 g/dL (11.5-16.0); IMMATURE GRAN ABSOLUTE AUTO 0.04 K/mm3 (0.00-0.10); IMMATURE GRAN PERCENT AUTO 1 % (0-1); LYMPHOCYTES ABSOLUTE AUTO 1.44 K/mm3 (0.84-5.20); LYMPHOCYTES PERCENT AUTO 18 % (21-46); MONOCYTES ABSOLUTE AUTO 0.78 K/mm3 (0.16-1.47); MONOCYTES PERCENT AUTO 10 % (4-13); Mean Corpuscular HGB 31.9 pg (26.0-34.0); Mean Corpuscular HGB Conc 32.1 g/dL (31.5-36.5); Mean Corpuscular Volume 99 fL (80-100); Mean Platelet Volume 10.4 fL (9.1-12.4); NEUTROPHILS ABSOLUTE AUTO 5.57 K/mm3 (1.96-9.15); NEUTROPHILS PERCENT AUTO 70 % (41-73); Platelet Count 299 K/mm3 (150-400); RDW Coefficient Variation 14.2 % (11.7-14.2); RDW Standard Deviation 52.3 fL (35.1-46.3); Red Blood Cell Count 3.64 M/mm3 (3.80-5.20); White Blood Cell Count 7.98 K/mm3 (4.00-11.30)
[2019-08-10 15:37] LABS: Albumin, Blood 2.5 g/dL (3.4-5.0); Albumin/Globulin Ratio 0.7 (0.8-1.8); Bilirubin, Total 0.4 mg/dL (0.1-1.0); Bun/Creatinine Ratio 12.4 (12.0-20.0); Calcium, Blood 8.2 mg/dL (8.5-10.1); Creatinine, Blood 1.21 mg/dL (0.40-1.00); Globulin, Blood 3.6 g/dL (2.2-4.0); Potassium, Blood 3.3 mmol/L (3.5-5.5); Total Protein, Blood 6.1 g/dL (6.4-8.2)
== END 2019-08-10 17:20 | disposition home or self-care (01) ==
LOC: ER 14:32
PROVIDERS: Emergency Medicine
DX: R13.10 Dysphagia, unspecified (principal); E86.0 Dehydration; A04.72 Enterocolitis due to Clostridium difficile, not specified as recurrent; I25.2 Old myocardial infarction; Z88.8 Allergy status to other drugs, medicaments and biological substances; Z79.899 Other long term (current) drug therapy; Z79.01 Long term (current) use of anticoagulants; Z79.51 Long term (current) use of inhaled steroids; Z86.73 Personal history of transient ischemic attack (TIA), and cerebral infarction without residual deficits; Z87.891 Personal history of nicotine dependence
CPT/HCPCS: 71046; 80053; 83690; 85025; 96360; 99284-25; J7030

== ENCOUNTER 2019-09-19 17:38 | Inpatient (IN) | payer MEDICARE ==
[~2019-09-19] VITALS: Ht 157.5 cm; Wt 40.6 kg
[~2019-09-19 17:38] MED LIST changes: -ALBU3IS NEB; -Caltrate-600 W1 EACH PO; -Coumadin2 MG PO; -ETHACRYNIC ACID25 MG PO; -Micro-K10 MEQ PO; -PROM25 PO; -Simvastatin20 MG PO; -Super B-50 Com1 EACH PO; -Synthroid88 MCG PO
[2019-09-19 18:46] LABS: BASOPHILS ABSOLUTE AUTO 0.08 K/mm3 (0.00-0.23); BASOPHILS PERCENT AUTO 1 % (0-2); EOSINOPHILS ABSOLUTE AUTO 0.11 K/mm3 (0.00-0.68); EOSINOPHILS PERCENT AUTO 1 % (0-6); Hemoglobin 11.9 g/dL (11.5-16.0); IMMATURE GRAN ABSOLUTE AUTO 0.02 K/mm3 (0.00-0.10); IMMATURE GRAN PERCENT AUTO 0 % (0-1); LYMPHOCYTES ABSOLUTE AUTO 1.48 K/mm3 (0.84-5.20); LYMPHOCYTES PERCENT AUTO 17 % (21-46); MONOCYTES ABSOLUTE AUTO 0.87 K/mm3 (0.16-1.47); MONOCYTES PERCENT AUTO 10 % (4-13); Mean Corpuscular HGB 31.6 pg (26.0-34.0); Mean Corpuscular HGB Conc 32.2 g/dL (31.5-36.5); Mean Corpuscular Volume 98 fL (80-100); Mean Platelet Volume 10.5 fL (9.1-12.4); NEUTROPHILS ABSOLUTE AUTO 6.39 K/mm3 (1.96-9.15); NEUTROPHILS PERCENT AUTO 72 % (41-73); Platelet Count 243 K/mm3 (150-400); RDW Coefficient Variation 14.6 % (11.7-14.2); RDW Standard Deviation 53.5 fL (35.1-46.3); Red Blood Cell Count 3.76 M/mm3 (3.80-5.20); White Blood Cell Count 8.95 K/mm3 (4.00-11.30)
[2019-09-19 19:00] LABS: Albumin, Blood 3.1 g/dL (3.4-5.0); Bun/Creatinine Ratio 23.2 (12.0-20.0); Calcium, Blood 8.6 mg/dL (8.5-10.1); Creatinine, Blood 1.12 mg/dL (0.40-1.00); Potassium, Blood 3.5 mmol/L (3.5-5.5)
[2019-09-19 19:01] LABS: Albumin/Globulin Ratio 0.7 (0.8-1.8); Bilirubin, Total 0.6 mg/dL (0.1-1.0); Globulin, Blood 4.2 g/dL (2.2-4.0); Total Protein, Blood 7.3 g/dL (6.4-8.2)
[2019-09-19] MEDS ORDERED: Bisoprolol Fumar5 MG PO (20:50)
[2019-09-19] MEDS ORDERED: Micro-K10 MEQ PO (20:52)
[2019-09-19] MEDS ORDERED: Promethazine12.5 M1 PO (20:53)
[2019-09-19] MEDS ORDERED: ESZO2 PO (20:54)
[2019-09-19] MEDS ORDERED: ETHACRYNIC ACID25 MG PO (20:55)
[2019-09-19] MEDS ORDERED: Synthroid88 MCG PO (20:56)
[2019-09-19] MEDS ORDERED: Duoneb 2.5-0.5 M3 ML INH (20:57)
[2019-09-19] MEDS ORDERED: Simvastatin20 MG PO (20:58)
[2019-09-19] MEDS ORDERED: Cholestyramine378 GM PO (20:59)
[2019-09-19] MEDS ORDERED: MOTOFEN 1-0.021 EACH PO (21:04)
[2019-09-19] MEDS ORDERED: CENTRUM SILVER1 EAC2 PO (21:05)
[2019-09-19] MEDS ORDERED: Caltrate-600 W1 EACH PO (21:06)
[2019-09-19] MEDS ORDERED: Super B-50 Com1 EACH PO (21:06)
[2019-09-19] MEDS ORDERED: Coumadin2 MG PO (22:14)
[2019-09-19] MEDS ORDERED: WARF1 PO (22:14)
[2019-09-19 22:17] LABS: International Normalized Ratio 1.48; Prothrombin Time Results 15.5 Sec (9.7-11.5)
--- NOTE | 2019-09-19 23:53 | NUR ---
2341 PT ADMITTED TO 313 PER CART FROM ER; PTS ALERT AND ORIENTED X 4; NPO; SPOUSE AT SIDE AND SUPPORTIVE; REPORT RECEIVED FROM MARY LUQUE VIA ER.
--- NOTE | 2019-09-20 04:40 | NUR ---
SHIFT SUMMARY: 89 Y/O SLENDER FEMALE RESTED COMFORTABLY ALL SHIFT; NPO STATUS; NO PAIN OR NAUSEA NOTED; PT VERY QUIET AND RESERVED WITH MINIMAL INTERACTION WITH STAFF; BED ALARM APPLIED, BED LOW POSITION WITH CALL LIGHT AT SIDE.
[2019-09-20 05:24] LABS: International Normalized Ratio 1.55; Prothrombin Time Results 16.2 Sec (9.7-11.5)
--- NOTE | 2019-09-20 18:14 | NUR ---
SHIFT SUMMARY PATIENT IS PLEASANT, ALERT AND ORIENTED. NO ACUTE COMPLAINTS AT THIS TIME. SHE IS AWAITING A PEG TUBE PLACEMENT. I HAVE EXPRESSED TO THE PATIENT MULTIPLE TIMES THAT SHE IS TO BE COMPLETELY NPO DUE TO HER TEST RESULTS AND HER PEG TUBE PLACEMENT. PATIENT IS ON THE SCHEDULE FOR 0[address] IN [address] M[address]ING WITH DR. RIVERA IN ORDER TO GET THE PEG TUBE PLACED. SHE STATES THAT SHE IS HAVING SIGNIFICANT DRY MOUTH AND I HAVE GIVEN HER THE OPTION OF SWISH AND SPIT AND SWABS. I KNOW THAT THE WE NEED TO TAKE THE CUPS AWAY PRIOR OT BEDTIME THE PATIENT HAS EXPRESSED THAT SHE IS JUST SO THIRSTY.
--- NOTE | 2019-09-20 23:22 | NUR ---
BEGINNING SHIFT SUMMARY ASSUMED CARE OF PT AT 1900. PT IS A/O X4, DENIES N/T IN EXTREMITES AT THIS TIME, [place] AND USES HEARING AIDS. FAMILY WAS PRESENT AND ASSKING QUESTIONS ABOUT PROECDURE IN THE AM. PT EDUCATED ABOUT WHEN THE PROCEDURE WILL BE AND WHAT TO EXPECT AFTERWARDS. HEART SOUNDS IRREGULAR; HX OF BYPASS AND MITRAL VALVE REPLACEMENT. LUNG SOUNDS CLEAR, PT AT 2L O2 AT NIGHT, DENIES CP/SOB AT THIS TIME. PT USES BSC INDEPENDENTLY. STOOL IS STILL LOOSE. CALL LIGHT IN REACH, BED IN LOWEST POSITION, WILL CONTINUE TO MONITOR.
[2019-09-21 04:54] LABS: BASOPHILS ABSOLUTE AUTO 0.14 K/mm3 (0.00-0.23); BASOPHILS PERCENT AUTO 1 % (0-2); EOSINOPHILS ABSOLUTE AUTO 0.13 K/mm3 (0.00-0.68); EOSINOPHILS PERCENT AUTO 1 % (0-6); Hematocrit 40.9 % (33.0-51.0); Hemoglobin 13.3 g/dL (11.5-16.0); IMMATURE GRAN ABSOLUTE AUTO 0.03 K/mm3 (0.00-0.10); IMMATURE GRAN PERCENT AUTO 0 % (0-1); LYMPHOCYTES ABSOLUTE AUTO 2.21 K/mm3 (0.84-5.20); LYMPHOCYTES PERCENT AUTO 20 % (21-46); MONOCYTES ABSOLUTE AUTO 0.92 K/mm3 (0.16-1.47); MONOCYTES PERCENT AUTO 8 % (4-13); Mean Corpuscular HGB 31.8 pg (26.0-34.0); Mean Corpuscular HGB Conc 32.5 g/dL (31.5-36.5); Mean Corpuscular Volume 98 fL (80-100); Mean Platelet Volume 10.6 fL (9.1-12.4); NEUTROPHILS PERCENT AUTO 69 % (41-73); Platelet Count 260 K/mm3 (150-400); RDW Coefficient Variation 14.8 % (11.7-14.2); RDW Standard Deviation 53.3 fL (35.1-46.3); Red Blood Cell Count 4.18 M/mm3 (3.80-5.20); White Blood Cell Count 11.23 K/mm3 (4.00-11.30)
--- NOTE | 2019-09-21 04:57 | NUR ---
END SHIFT SUMMARY PT DID NOT SLEEP MUCH DURING THE NIGHT. PT STATED THAT SHE WAS SOB AFTER USING THE COMMODE, PT AGREED THAT SHE WAS VERY ANXIOUS ABOUT THE PROCEDURE TODAY, PT WENT TO SLEEP ABOUT 0300 AND HAS BEEN SLEEPING UNTIL LAB CAME. CALL LIGHT IN REACH, BED IN LOWEST POSITION, WILL CONTINUE TO MONITOR UNTIL DAYSHIFT NURSE ARRIVES.
[2019-09-21 05:09] LABS: International Normalized Ratio 1.42; Prothrombin Time Results 14.9 Sec (9.7-11.5)
[2019-09-21 05:54] LABS: Bun/Creatinine Ratio 25.1 (12.0-20.0); Calcium, Blood 8.6 mg/dL (8.5-10.1); Potassium, Blood 3.6 mmol/L (3.5-5.5)
--- NOTE | 2019-09-21 08:39 | NUR ---
09/21/19 0839 Kayleen Reynaga MAC CASE WITH DR. ZHAO. SEE ANETHESIA RECORD FOR CARE.
--- NOTE | 2019-09-21 15:31 | NUR ---
SHIFT SUMMARY PT IS A/O X 4 WITH THIS MORNINGS ASSESSMENT AND HAS NO C/O PAIN. SHE DID REQUEST A BREATHING TX SHE TAKES THEM ROUTINELY AT HOME AND PER REPORT SHE WAS SCHEDULED TO RECEIVE ONE IN DAY SURGERY. PT WAS MADE AWARE OF THIS AND AGREEABLE. SHORTLY AFTER MORNING ROUNDS DAY SURGERY NURSE CAME TO PICK PT UP. SHE WAS ASSISTED TO DAY SURGERY AND RETURNED WITH A NEW PEG TUBE. DR RIVERA ME ME IN THE ROOM AND GAVE ORDERS FOR A DIETARY CONSULT FOR TUBE FEEDINGS TO START TOMORROW AND THE ORDER WAS ENTERED. THE FAMILY WAS IN THE ROOM WITH PT UPON HER RETURN AND THIS NURSE MET WITH THE AND SON AND ANSWERED THEIR QUESTIONS. THE REPORTED TO THE WAFER POLISHER THAT THE PT WAS HAVING SOME MILD PAIN AND WAS NOTIFIED. ORDERS WERE GIVEN BUT WHEN THIS NURSE RETURNED TO ASSESS PT SHE WAS SLEEPING WITH NO S/S OF DISCOMFORT. PT CONTINUES ON 2 LPM VIA N.C. PT CALLS FOR HELP WHEN NEEDED. CALL LIGHT IS IN PLACE.
--- NOTE | 2019-09-21 23:29 | NUR ---
BEGINNING SHIFT SUMMARY ASSUMED CARE OF PT AT 1900. PT IS A/O X4, DENIES N/T IN EXTREMITIES, PT IS SURROUNDED BY FAMILY. PT EXPRESSION IS WITHDRAWN AND FLAT, WHEN ASKED ABOUT THE PATIENTS CONCERNS, PT WAS VERY UPSET ABOUT HER NEW PEGTUBE AND HOW IT WOULD CHANGE HER LIFE. PT C/O NOT BEING ABLE TO SLEEP, HOSPITALIST NOTIFIED AND ORDERED MEDICATION VIA PEGTUBE. HOSPITALIST ALSO NOTIFIED THAT NO REPEAT LABS WERE ORDERED AND PT DAUGHTER, A NURSE, REQUESTED LABS DUE TO THE PATIENT NOT BEING ABLE TO TAKE HER HEART MEDICATIONS THE LAST COUPLE DAYS. PROVIDER ALSO TRIED TO ORDER LASIX DUE TO PT INCREASED SOB AND CRACKLES IN LUNGS BUT PT IS ALLERGIC TO LASIX. WILL NOTIFY DAYSHIFT NURSE. HEART SOUNDS IRREGULAR, LUNG SOUNDS HAVE FINE CRACKLES AT THE BASES, PT C/O SOB AND HAS PRN NEBULIZERS, PT ON 2L NC. PT WAS CONCERNED ABOUT GETTING MEDICATIONS IN HER PEGTUBE THE FIRST TIME. PT REASSURED AND TAUGHT THE PROCEDURE. PT IS APPRICIATIVE OF THE SLEEP MEDICATION AND HOPES IT WORKS. CALL LIGHT IN REACH, BED IN LOWEST POSTION, WILL CONTINUE TO MONITOR.
--- NOTE | 2019-09-22 04:39 | NUR ---
END SHIFT SUMMARY NO ACUTE CHANGES NOTED T/O THE NIGHT. PT WAS ABLE TO SLEEP AFTER GETTING SLEEP MEDICATION AND STATES SHE FEELS MUCH BETTER, PT WAS ABLE TO SMILE THIS MORNING. CALL LIGHT IN REACH, BED IN LOWEST POSTION, WILL CONTINUE TO MONITOR UNTIL DAYSHIFT NURSE ARRIVES.
[2019-09-22 05:38] LABS: Hematocrit 37.7 % (33.0-51.0); Hemoglobin 12.2 g/dL (11.5-16.0); Mean Corpuscular HGB 31.1 pg (26.0-34.0); Mean Corpuscular HGB Conc 32.4 g/dL (31.5-36.5); Mean Corpuscular Volume 96 fL (80-100); Mean Platelet Volume 10.5 fL (9.1-12.4); Platelet Count 262 K/mm3 (150-400); RDW Standard Deviation 52.8 fL (35.1-46.3); Red Blood Cell Count 3.92 M/mm3 (3.80-5.20); White Blood Cell Count 11.23 K/mm3 (4.00-11.30)
[2019-09-22 06:02] LABS: Anion Gap 6 mmol/L (6-16); Blood Urea Nitrogen 16 mg/dL (8-24); Bun/Creatinine Ratio 17.2 (12.0-20.0); CO2, Blood 22 mmol/L (21-32); Calcium, Blood 8.4 mg/dL (8.5-10.1); Chloride, Blood 115 mmol/L (98-108); Creatinine, Blood 0.93 mg/dL (0.40-1.00); Glomerular Filtration Rate >60 (60-); Glucose, Blood 105 mg/dL (70-99); Potassium, Blood 3.1 mmol/L (3.5-5.5); Sodium, Blood 143 mmol/L (136-145)
[2019-09-22 10:45] LABS: Prothrombin Time Results 20.6 Sec (9.7-11.5)
[2019-09-22 13:04] LABS: Adenovirus Not Detected (NOT DETECT); Bordetella pertussis Not Detected (NOT DETECT); Chlamydophila pneumoniae Not Detected (NOT DETECT); Coronavirus 229E Not Detected (NOT DETECT); Coronavirus HKU1 Not Detected (NOT DETECT); Coronavirus NL63 Not Detected (NOT DETECT); Coronavirus OC43 Not Detected (NOT DETECT); Human Metapneumovirus Not Detected (NOT DETECT); Human Rhinovirus/Enterovirus Not Detected (NOT DETECT); Influenza A Not Detected (NOT DETECT); Influenza A/2009-H1 Not Detected (NOT DETECT); Influenza A/H1 Not Detected (NOT DETECT); Influenza A/H3 Not Detected (NOT DETECT); Influenza B Not Detected (NOT DETECT); Mycoplasma pneumoniae Not Detected (NOT DETECT); Parainfluenza Virus 1 Not Detected (NOT DETECT); Parainfluenza Virus 2 Not Detected (NOT DETECT); Parainfluenza Virus 3 Not Detected (NOT DETECT); Parainfluenza Virus 4 Not Detected (NOT DETECT); Respiratory Syncytial Virus Not Detected (NOT DETECT)
[2019-09-22 14:16] LABS: Source, Urine Clean Catch
[2019-09-22 14:19] LABS: Bilirubin, Urine Neg (Neg); Blood, Urine Neg (Neg); Glucose Qualitative, Urine Neg (Neg); Ketones, Urine 2+ (Neg); Leukocyte Esterase, Urine 1+ (Neg); Nitrite, Urine Neg (Neg); Protein, Urine 2+ (Neg); Specific Gravity, Urine 1.025 (1.003-1.022); Urobilinogen, Urine NORM (Normal)
[2019-09-22 14:26] LABS: Appearance, Urine Clear (Clear); Color, Urine Yellow (P-Yellow)
[2019-09-22 14:31] LABS: Red Blood Cells, Urine Not Seen /hpf (0-2); Squamous Epithelial Cells Few /hpf (Few)
[2019-09-22 14:32] LABS: Bacteria Few /hpf; Transitional Epithelial Cells Rare /hpf (0-Rare)
[2019-09-22 14:33] LABS: Hyaline Casts 0-2 /lpf (0-2)
--- NOTE | 2019-09-22 15:26 | NUR ---
SHIFT SUMMARY PT IS A/O WITH NO C/O PAIN TODAY. SHE WAS TEARFUL AND WITHDRAWN THIS MORNING EVEN WITH HER AT THE BEDSIDE. THE SOLUTION MAKER CAME TO SEE HER AND SPOKE ABOUT THE PLAN TO START TUBE FEEDINGS AND THE PT STARTED TO SEEM MORE INTERESTED IN HER PLAN OF CARE. THE FIRST TUBE FEEDINGS WAS GIVEN ORDERED AND TOLERATED WELL. AFTER SHE HAD SOME NOURISHMENT THE PT IS NOW MUCH MORE ALERT AND ACTIVE IN HER CARE AND SMILING. THE FAMILY HAS BEEN UPDATED ON ALL OF HER CARE THIS MORNING AND EDUCATION WAS DONE WITH THE PT AND HER FAMILY ON HOW TO USE THE FEEDING TUBE AND ADMINISTER THE TUBE FEEDING FORMULA. THE SOLUTION MAKER ALSO GAVE THE FAMILY SOME LITERATURE ON TUBE FEEDING NUTRITION. THE PT IS ABLE TO MAKE HER NEEDS KNOWN AND CALLS FREQUENTLY FOR HELP. SHE USES THE BS FOR TOILETING. CALL LIGHT IS IN REACH.
--- NOTE | 2019-09-22 19:16 | NUR ---
patient gave permission to provide care on 09/23/2019.
[2019-09-23 06:40] LABS: BASOPHILS ABSOLUTE AUTO 0.09 K/mm3 (0.00-0.23); BASOPHILS PERCENT AUTO 1 % (0-2); EOSINOPHILS ABSOLUTE AUTO 0.21 K/mm3 (0.00-0.68); EOSINOPHILS PERCENT AUTO 2 % (0-6); Hematocrit 38.8 % (33.0-51.0); Hemoglobin 12.6 g/dL (11.5-16.0); IMMATURE GRAN ABSOLUTE AUTO 0.02 K/mm3 (0.00-0.10); IMMATURE GRAN PERCENT AUTO 0 % (0-1); LYMPHOCYTES ABSOLUTE AUTO 1.55 K/mm3 (0.84-5.20); LYMPHOCYTES PERCENT AUTO 16 % (21-46); MONOCYTES PERCENT AUTO 8 % (4-13); Mean Corpuscular HGB 31.5 pg (26.0-34.0); Mean Corpuscular HGB Conc 32.5 g/dL (31.5-36.5); Mean Corpuscular Volume 97 fL (80-100); Mean Platelet Volume 10.3 fL (9.1-12.4); NEUTROPHILS ABSOLUTE AUTO 6.81 K/mm3 (1.96-9.15); NEUTROPHILS PERCENT AUTO 72 % (41-73); Platelet Count 275 K/mm3 (150-400); RDW Standard Deviation 54.5 fL (35.1-46.3); White Blood Cell Count 9.48 K/mm3 (4.00-11.30)
[2019-09-23 06:54] LABS: International Normalized Ratio 1.74
[2019-09-23 06:56] LABS: Bun/Creatinine Ratio 10.6 (12.0-20.0); Calcium, Blood 8.4 mg/dL (8.5-10.1); Creatinine, Blood 1.04 mg/dL (0.40-1.00)
--- NOTE | 2019-09-23 07:44 | NUR ---
SHIFT SUMMARY A/O, ABLE TO MAKE NEEDS KNOWN. COOPERATIVE WITH CARE. CALLS AND ANSWERS QUESTIONS APPROPRIATELY. NO C/O PAIN/DISCOMFORT. PETRE IN TO DO A PROCEDURE; ORDERED 1 TIME DOSE OF MORPHINE. TOLERATED PROCEDURE WELL. TOLERATED BOLUS FEEDINGS WITHOUT PAIN/DISCOMFORT. REQUESTED AMBIEN TO SLEEP. APPEARED TO REST A FEW HOURS. SPOKE TO [id number] THIS AM ABOUT CARE/CONDITION. REMAINED ON 2L O2 WHICH IS BASELINE WITHOUT COMPLICATIONS. VSS/AFEBRILE. APPEARS TACHY, BUT APPEARS TO BE WNL. CONTINUED TO MONITOR OVERNIGHT. BED IN LOWEST POSITION. CALL LIGHT AND BELONGINGS WITHIN REACH. REPORT GIVEN TO ONCOMING RN.
--- NOTE | 2019-09-23 18:13 | NUR ---
PT WITH NEW PEG TUBE PLACED 09/21/19. BOLUS FEEDINGS GIVEN AND SLOWLY ADVANCING TOWARDS GOAL. PT IS TOLERATING WELL. PT DID C/O OF SOME PAIN (02/26) THIS AFTERNOON AT THE PEG INSERTION SITE. MEDICATED WITH 25MCG IV FENTANYL PER EMAR. FAMILY IN AND OUT FOR SHORT VISITS THIS TODAY. NO ACUTE CHANGES NOTED THIS SHIFT, WILL CONTINUE TO MONITOR AND REPORT TO ONCOMING RN
--- NOTE | 2019-09-24 03:44 | NUR ---
SHIFT SUMMARY PATIENT HAD NO ACUTE CHANGES OBSERVED. AXOX 3 AND ONE ASSIST TO BSC. PEG TUBE GRAVITY FEEDING AND MEDICATION ADMINISTRATION TOLERATED WELL. REQUESTED AMBIEN FOR INSOMNIA AND GIVEN VIA PEG TUBE PER EMAR. VSS/AFEBRILE. DENIES PAIN, SOB, AND N/V. PIV REMAINS INTACT. IV ABX INFUSED. FAMILY PRESENT AT SHIFT CHANGE. ON 02 2L NC BASELINE. CALL LIGHT IN REACH. BED IN LOWEST POSITION. WILL CONTINUE TO MONITOR UNTIL DAY SHIFT NURSE ASSUMES CARE.
[2019-09-24 05:09] LABS: BASOPHILS ABSOLUTE AUTO 0.05 K/mm3 (0.00-0.23); BASOPHILS PERCENT AUTO 1 % (0-2); EOSINOPHILS ABSOLUTE AUTO 0.17 K/mm3 (0.00-0.68); EOSINOPHILS PERCENT AUTO 2 % (0-6); Hematocrit 39.7 % (33.0-51.0); Hemoglobin 12.8 g/dL (11.5-16.0); IMMATURE GRAN ABSOLUTE AUTO 0.03 K/mm3 (0.00-0.10); IMMATURE GRAN PERCENT AUTO 0 % (0-1); LYMPHOCYTES ABSOLUTE AUTO 1.71 K/mm3 (0.84-5.20); LYMPHOCYTES PERCENT AUTO 19 % (21-46); MONOCYTES ABSOLUTE AUTO 0.82 K/mm3 (0.16-1.47); MONOCYTES PERCENT AUTO 9 % (4-13); Mean Corpuscular HGB 31.1 pg (26.0-34.0); Mean Corpuscular HGB Conc 32.2 g/dL (31.5-36.5); Mean Corpuscular Volume 96 fL (80-100); Mean Platelet Volume 10.3 fL (9.1-12.4); NEUTROPHILS PERCENT AUTO 70 % (41-73); Platelet Count 275 K/mm3 (150-400); RDW Coefficient Variation 14.8 % (11.7-14.2); RDW Standard Deviation 52.9 fL (35.1-46.3); Red Blood Cell Count 4.12 M/mm3 (3.80-5.20); White Blood Cell Count 9.18 K/mm3 (4.00-11.30)
[2019-09-24 05:22] LABS: International Normalized Ratio 1.72; Prothrombin Time Results 17.8 Sec (9.7-11.5)
[2019-09-24 05:27] LABS: Bun/Creatinine Ratio 8.9 (12.0-20.0); Calcium, Blood 8.4 mg/dL (8.5-10.1); Creatinine, Blood 1.01 mg/dL (0.40-1.00); Phosphorus, Blood 1.8 mg/dL (2.5-4.9); Potassium, Blood 3.1 mmol/L (3.5-5.5)
--- NOTE | 2019-09-24 19:22 | NUR ---
SHIFT SUMMARY PT HAS BEEN TOLERATING TUBE FEEDINGS AND THIS RN INCREASED FEEDINGS TO 180 ML FOR LUNCH AND DINNER FEEDINGS AND PT TOLERATED WELL. NO COMPLAINTS OF NAUSEA AND NO RESIDUAL NOTED WITH EACH FEEDING. PT HAS HAD NO COMPLAINTS OF PAIN. THIS RN AND UNDERWRITING SERVICE REPRESENTATIVE GAVE PT A BED BATH. SACRAL DRESSING PLACED FOR PREVENTIVE MEASURES AND THIS RN ENCOURAGED PT TO LAY ON SIDES TO HELP BLOOD FLOW TO COCCYX. PT UP TO CHAIR THIS EVENING. NO ACUTE CHANGES. REPORT GIVEN TO ARTEMIO RN. CALL LIGHT IN REACH.
[2019-09-25 05:29] LABS: BASOPHILS ABSOLUTE AUTO 0.06 K/mm3 (0.00-0.23); BASOPHILS PERCENT AUTO 1 % (0-2); EOSINOPHILS ABSOLUTE AUTO 0.26 K/mm3 (0.00-0.68); EOSINOPHILS PERCENT AUTO 4 % (0-6); Hematocrit 37.2 % (33.0-51.0); Hemoglobin 12.3 g/dL (11.5-16.0); IMMATURE GRAN ABSOLUTE AUTO 0.03 K/mm3 (0.00-0.10); IMMATURE GRAN PERCENT AUTO 0 % (0-1); LYMPHOCYTES ABSOLUTE AUTO 1.71 K/mm3 (0.84-5.20); LYMPHOCYTES PERCENT AUTO 24 % (21-46); MONOCYTES ABSOLUTE AUTO 0.62 K/mm3 (0.16-1.47); MONOCYTES PERCENT AUTO 9 % (4-13); Mean Corpuscular HGB 31.5 pg (26.0-34.0); Mean Corpuscular HGB Conc 33.1 g/dL (31.5-36.5); Mean Corpuscular Volume 95 fL (80-100); Mean Platelet Volume 10.8 fL (9.1-12.4); NEUTROPHILS PERCENT AUTO 63 % (41-73); Platelet Count 276 K/mm3 (150-400); RDW Coefficient Variation 14.8 % (11.7-14.2); RDW Standard Deviation 51.6 fL (35.1-46.3); Red Blood Cell Count 3.91 M/mm3 (3.80-5.20); White Blood Cell Count 7.18 K/mm3 (4.00-11.30)
[2019-09-25 05:44] LABS: International Normalized Ratio 1.6; Prothrombin Time Results 16.7 Sec (9.7-11.5)
--- NOTE | 2019-09-25 05:50 | NUR ---
SHIFT SUMMARY PT HAS HAD NO ACUTE CHANGES THIS SHIFT, NO COMPLAINTS OF ANY KIND. PT UP TO CHAIR FOR SEVERAL HOURS THIS SHIFT, ASSISTED PT W/REPOSITIONS IN BED T/O NIGHT, PT APPEARS TO BE SLEEPING AT THIS TIME W/CALL LIGHT IN REACH, WILL CONT TO MONITOR UNTIL REPORT GIVEN TO DAY RN.
[2019-09-25 05:55] LABS: Anion Gap 7 mmol/L (6-16); Blood Urea Nitrogen 12 mg/dL (8-24); Bun/Creatinine Ratio 13.4 (12.0-20.0); CO2, Blood 28 mmol/L (21-32); Calcium, Blood 8.5 mg/dL (8.5-10.1); Chloride, Blood 104 mmol/L (98-108); Glomerular Filtration Rate >60 (60-); Glucose, Blood 84 mg/dL (70-99); Phosphorus, Blood 2.5 mg/dL (2.5-4.9); Sodium, Blood 139 mmol/L (136-145)
--- NOTE | 2019-09-25 08:53 | NUR ---
PATIENT DID NOT EAT BREAKFAST THIS SHIFT DUE TO BEING NPO AT THIS TIME
[2019-09-25] MEDS ORDERED: LEVFLO500 PT (12:21)
--- NOTE | 2019-09-25 13:31 | NUR ---
PATIENT DID NOT EAT LUNCH THIS SHIFT DUE TO BEING NPO AT THIS TIME.
[2019-09-25] MEDS ORDERED: ZOLP5 PT (15:26)
--- NOTE | 2019-09-25 18:25 | NUR ---
DISCHARGE PT DISCHARGED TO HOME WITH HOME HEALTH. THIS RN EDUCATED PT'S SPOUSE ON HOW TO DO TUBE FEEDINGS. PT'S SPOUSE DID TUBE FEEDINGS TWICE AND WATER ONCE BEFORE DISCHARGING. PT'S SPOUSE REPORTS FEELING COMFORTABLE WITH THE FEEDING AND DID WELL. THIS RN EXPLAINED DISCHARGE INSTRUCTIONS AND MEDICATIONS TO PT AND PT'S SPOUSE. THEY REPORT THEY UNDERSTAND. EDUCATION WAS PRINTED AND GIVEN TO PT ABOUT HOW TO CARE FOR PEG TUBE. PT RECEIVED INSTRUCTIONS ON FEEDING AMOUNT/FREQUENCY. PT TRANSFERRED TO PRIVATE VEHICLE VIA WHEELCHAIR. BELONGINGS WITH PT AND PT'S SPOUSE.
== END 2019-09-25 17:33 | disposition home health service (06) | DRG 391 ==
LOC: ER 17:38 → MEDS 17:39
PROVIDERS: Emergency Medicine; Internal Medicine; Internal Medicine Gastroenterology; Physician Assistant; ADMIT Family Medicine
PROC: 0DH63UZ Insertion of Feeding Device into Stomach, Percutaneous Approach (ICD-10-PCS; 2019-09-21)
PROC: 0DD98ZX Extraction of Duodenum, Via Natural or Artificial Opening Endoscopic, Diagnostic (ICD-10-PCS; principal; 2019-09-21 08:00)
PROC: 0DD68ZX Extraction of Stomach, Via Natural or Artificial Opening Endoscopic, Diagnostic (ICD-10-PCS; 2019-09-21 08:00)
DX: R13.12 Dysphagia, oropharyngeal phase (principal); J69.0 Pneumonitis due to inhalation of food and vomit; J96.01 Acute respiratory failure with hypoxia; I42.9 Cardiomyopathy, unspecified; E44.0 Moderate protein-calorie malnutrition; Z95.2 Presence of prosthetic heart valve; Z85.3 Personal history of malignant neoplasm of breast; Z79.01 Long term (current) use of anticoagulants; I25.10 Atherosclerotic heart disease of native coronary artery without angina pectoris; E03.9 Hypothyroidism, unspecified; E78.5 Hyperlipidemia, unspecified; Z95.1 Presence of aortocoronary bypass graft; Z99.81 Dependence on supplemental oxygen; Z66 Do not resuscitate; I25.2 Old myocardial infarction; I11.0 Hypertensive heart disease with heart failure; Z87.891 Personal history of nicotine dependence
CPT/HCPCS: 0099U; 36415; 71045; 71046; 80048; 80053; 81001; 82947; 83605; 83880; 84100; 85025; 85027; 85610; 85730; 87086; 88305; 88342; 93005; 93010; 94640; 94760; 96374; 96375; 96376; 97110; 97162; 97165; 97530; 97535; 99285-25; A9270-GY; C1769; G0378; J1956; J2001; J2270; J2543; J2704; J3010; J3480; J7030; J7042; J7050; J7120; J7799

== ENCOUNTER → 2019-09-30 | Outpatient (CLI) | payer MEDICARE ==
[~2019-09-30] MED LIST changes: +Bisoprolol Fumar5 MG PO; +Caltrate-600 W1 EACH PO; +Coumadin2 MG PO; +Duoneb 2.5-0.5 M3 ML INH; +ETHACRYNIC ACID25 MG PO; +LEVFLO500 PT; +MOTOFEN 1-0.021 EACH PO; +Micro-K10 MEQ PO; +Promethazine12.5 M1 PO; +Simvastatin20 MG PO; +Super B-50 Com1 EACH PO; +Synthroid88 MCG PO; +ZOLP5 PT
[2019-09-30 19:35] LABS: International Normalized Ratio 1.37; Prothrombin Time Results 14.4 Sec (9.7-11.5)
== END ==
LOC: LAB 17:50 → LAB SHORT 17:50
PROVIDERS: Internal Medicine Cardiovascular Disease
DX: Z48.812 Encounter for surgical aftercare following surgery on the circulatory system (principal); Z95.1 Presence of aortocoronary bypass graft; Z95.2 Presence of prosthetic heart valve
CPT/HCPCS: 85610

== ENCOUNTER 2019-11-26 10:52 | Emergency (ER) | payer MEDICARE, OTHER ==
[~2019-11-26] VITALS: Ht 154.9 cm; Wt 45.4 kg
[2019-11-26 11:35] LABS: BASOPHILS ABSOLUTE AUTO 0.09 K/mm3 (0.00-0.23); BASOPHILS PERCENT AUTO 1 % (0-2); EOSINOPHILS ABSOLUTE AUTO 0.28 K/mm3 (0.00-0.68); EOSINOPHILS PERCENT AUTO 3 % (0-6); Hematocrit 42.2 % (33.0-51.0); Hemoglobin 13.2 g/dL (11.5-16.0); IMMATURE GRAN ABSOLUTE AUTO 0.04 K/mm3 (0.00-0.10); IMMATURE GRAN PERCENT AUTO 0 % (0-1); LYMPHOCYTES ABSOLUTE AUTO 1.42 K/mm3 (0.84-5.20); LYMPHOCYTES PERCENT AUTO 15 % (21-46); MONOCYTES ABSOLUTE AUTO 0.71 K/mm3 (0.16-1.47); MONOCYTES PERCENT AUTO 7 % (4-13); Mean Corpuscular HGB 32.3 pg (26.0-34.0); Mean Corpuscular HGB Conc 31.3 g/dL (31.5-36.5); Mean Corpuscular Volume 103 fL (80-100); NEUTROPHILS ABSOLUTE AUTO 7.23 K/mm3 (1.96-9.15); NEUTROPHILS PERCENT AUTO 74 % (41-73); Platelet Count 282 K/mm3 (150-400); RDW Coefficient Variation 13.1 % (11.7-14.2); RDW Standard Deviation 50.2 fL (35.1-46.3); Red Blood Cell Count 4.09 M/mm3 (3.80-5.20); White Blood Cell Count 9.77 K/mm3 (4.00-11.30)
[2019-11-26 11:48] LABS: Alanine Aminotransfer (ALT/SGP 68 U/L (12-78); Albumin, Blood 3.4 g/dL (3.4-5.0); Albumin/Globulin Ratio 0.7 (0.8-1.8); Alk Phos 93 U/L (50-136); Anion Gap 4 mmol/L (6-16); Aspartate Aminotrans (AST/SGOT 63 U/L (12-37); Bilirubin, Total 0.5 mg/dL (0.1-1.0); Blood Urea Nitrogen 35 mg/dL (8-24); Bun/Creatinine Ratio 38.2 (12.0-20.0); CO2, Blood 31 mmol/L (21-32); Calcium, Blood 9.7 mg/dL (8.5-10.1); Chloride, Blood 101 mmol/L (98-108); Creatinine, Blood 0.92 mg/dL (0.40-1.00); Globulin, Blood 4.7 g/dL (2.2-4.0); Glomerular Filtration Rate >60 (60-); Glucose, Blood 97 mg/dL (70-99); Potassium, Blood 4.3 mmol/L (3.5-5.5); Sodium, Blood 136 mmol/L (136-145); Total Protein, Blood 8.1 g/dL (6.4-8.2); Troponin I <0.015 ng/mL (0.000-0.040)
[2019-11-26 13:40] LABS: International Normalized Ratio 1.61; Prothrombin Time Results 16.8 Sec (9.7-11.5)
== END 2019-11-26 14:52 | disposition home or self-care (01) ==
LOC: ER 10:52
PROVIDERS: Emergency Medicine
DX: I50.9 Heart failure, unspecified (principal); I25.2 Old myocardial infarction; Z86.73 Personal history of transient ischemic attack (TIA), and cerebral infarction without residual deficits; Z85.3 Personal history of malignant neoplasm of breast; Z87.891 Personal history of nicotine dependence; Z88.8 Allergy status to other drugs, medicaments and biological substances; Z79.899 Other long term (current) drug therapy
CPT/HCPCS: 36415; 71045; 80053; 83880; 84484; 85025; 85610; 93005; 93010; 99285-25

== ENCOUNTER 2020-02-01 11:01 | Emergency (ER) | payer MEDICARE, OTHER ==
[~2020-02-01] VITALS: Ht 152.4 cm; Wt 43.1 kg
[2020-02-01 11:48] LABS: BASOPHILS ABSOLUTE AUTO 0.05 K/mm3 (0.00-0.23); BASOPHILS PERCENT AUTO 0 % (0-2); EOSINOPHILS ABSOLUTE AUTO 0.02 K/mm3 (0.00-0.68); EOSINOPHILS PERCENT AUTO 0 % (0-6); Hemoglobin 11.6 g/dL (11.5-16.0); IMMATURE GRAN ABSOLUTE AUTO 0.05 K/mm3 (0.00-0.10); IMMATURE GRAN PERCENT AUTO 0 % (0-1); LYMPHOCYTES ABSOLUTE AUTO 0.84 K/mm3 (0.84-5.20); LYMPHOCYTES PERCENT AUTO 7 % (21-46); MONOCYTES ABSOLUTE AUTO 1.45 K/mm3 (0.16-1.47); MONOCYTES PERCENT AUTO 11 % (4-13); Mean Corpuscular HGB 30.2 pg (26.0-34.0); Mean Corpuscular HGB Conc 31.4 g/dL (31.5-36.5); Mean Corpuscular Volume 96 fL (80-100); Mean Platelet Volume 10.4 fL (9.1-12.4); NEUTROPHILS ABSOLUTE AUTO 10.44 K/mm3 (1.96-9.15); NEUTROPHILS PERCENT AUTO 81 % (41-73); Platelet Count 397 K/mm3 (150-400); RDW Coefficient Variation 13.7 % (11.7-14.2); RDW Standard Deviation 48.4 fL (35.1-46.3); Red Blood Cell Count 3.84 M/mm3 (3.80-5.20); White Blood Cell Count 12.85 K/mm3 (4.00-11.30)
[2020-02-01 12:13] LABS: Albumin, Blood 2.7 g/dL (3.4-5.0); Albumin/Globulin Ratio 0.5 (0.8-1.8); Bilirubin, Total 0.6 mg/dL (0.1-1.0); Bun/Creatinine Ratio 46.6 (12.0-20.0); Calcium, Blood 9.3 mg/dL (8.5-10.1); Creatinine, Blood 1.16 mg/dL (0.40-1.00); Globulin, Blood 5.9 g/dL (2.2-4.0); Potassium, Blood 3.9 mmol/L (3.5-5.5); Total Protein, Blood 8.6 g/dL (6.4-8.2); Troponin I 0.019 ng/mL (0.000-0.040)
[2020-02-01 13:32] LABS: Source, Urine Clean Catch
[2020-02-01 13:36] LABS: Specific Gravity, Urine 1.005 (1.003-1.022)
[2020-02-01 13:37] LABS: Bilirubin, Urine Neg (Neg); Blood, Urine Neg (Neg); Glucose Qualitative, Urine Neg (Neg); Ketones, Urine Neg (Neg); Leukocyte Esterase, Urine 1+ (Neg); Nitrite, Urine Neg (Neg); Protein, Urine Trace (Neg); Urobilinogen, Urine NORM (Normal)
[2020-02-01 13:38] LABS: Appearance, Urine Clear (Clear); Color, Urine Yellow (P-Yellow)
[2020-02-01 13:47] LABS: Bacteria Few /hpf; Red Blood Cells, Urine Rare /hpf (0-2); Squamous Epithelial Cells Rare /hpf (Few); White Blood Cells, Urine 0-2 /hpf (0-5)
== END 2020-02-01 15:07 | disposition home or self-care (01) ==
LOC: ER 11:01
PROVIDERS: Physician Assistant
DX: R06.00 Dyspnea, unspecified (principal); I25.2 Old myocardial infarction; Z88.8 Allergy status to other drugs, medicaments and biological substances; Z79.899 Other long term (current) drug therapy; Z79.01 Long term (current) use of anticoagulants; Z86.73 Personal history of transient ischemic attack (TIA), and cerebral infarction without residual deficits; Z87.891 Personal history of nicotine dependence
CPT/HCPCS: 36415; 71045; 80053; 81001; 83880; 84484; 85025; 87086; 93005; 93010; 96360; 99285-25; J7030

== ENCOUNTER 2020-04-27 14:15 | Inpatient (IN) | payer MEDICARE ==
[~2020-04-27] VITALS: Ht 157.5 cm; Wt 38.7 kg
[~2020-04-27 14:15] MED LIST changes: +BUME1 PO; +DIGOX125 MC1 PO; +EUTHYROX88 MCG PT; +IPRAT-ALBUT 0.5-3 ML NEB; +Ondansetron Odt8 MG MM; +WARF3 PT; +ZOCOR20 MG PT
[2020-04-27 14:43] LABS: BASOPHILS ABSOLUTE AUTO 0.06 K/mm3 (0.00-0.23); BASOPHILS PERCENT AUTO 1 % (0-2); EOSINOPHILS ABSOLUTE AUTO 0.03 K/mm3 (0.00-0.68); EOSINOPHILS PERCENT AUTO 0 % (0-6); Hematocrit 35.3 % (33.0-51.0); IMMATURE GRAN ABSOLUTE AUTO 0.04 K/mm3 (0.00-0.10); IMMATURE GRAN PERCENT AUTO 0 % (0-1); LYMPHOCYTES ABSOLUTE AUTO 1.33 K/mm3 (0.84-5.20); LYMPHOCYTES PERCENT AUTO 11 % (21-46); MONOCYTES ABSOLUTE AUTO 1.22 K/mm3 (0.16-1.47); MONOCYTES PERCENT AUTO 10 % (4-13); Mean Corpuscular HGB 28.5 pg (26.0-34.0); Mean Corpuscular HGB Conc 31.2 g/dL (31.5-36.5); Mean Corpuscular Volume 92 fL (80-100); Mean Platelet Volume 10.3 fL (9.1-12.4); NEUTROPHILS ABSOLUTE AUTO 9.31 K/mm3 (1.96-9.15); NEUTROPHILS PERCENT AUTO 78 % (41-73); Platelet Count 457 K/mm3 (150-400); RDW Coefficient Variation 16.4 % (11.7-14.2); RDW Standard Deviation 54.8 fL (35.1-46.3); Red Blood Cell Count 3.86 M/mm3 (3.80-5.20); White Blood Cell Count 11.99 K/mm3 (4.00-11.30)
[2020-04-27 15:08] LABS: PO2 Arterial 69.9 mmHg (80-100); pH Blood Arterial 7.51 (7.35-7.45)
[2020-04-27 15:19] LABS: Alanine Aminotransfer (ALT/SGP 33 U/L (12-78); Albumin, Blood 2.3 g/dL (3.4-5.0); Albumin/Globulin Ratio 0.4 (0.8-1.8); Alk Phos 128 U/L (50-136); Anion Gap 5 mmol/L (6-16); Aspartate Aminotrans (AST/SGOT 34 U/L (12-37); Bilirubin, Total 0.6 mg/dL (0.1-1.0); Blood Urea Nitrogen 43 mg/dL (8-24); Bun/Creatinine Ratio 47.6 (12.0-20.0); CO2, Blood 33 mmol/L (21-32); Calcium, Blood 9.2 mg/dL (8.5-10.1); Chloride, Blood 100 mmol/L (98-108); Globulin, Blood 5.9 g/dL (2.2-4.0); Glomerular Filtration Rate >60 (60-); Glucose, Blood 103 mg/dL (70-99); Magnesium, Blood 2.5 mg/dL (1.6-2.4); Phosphorus, Blood 3.6 mg/dL (2.5-4.9); Potassium, Blood 4.2 mmol/L (3.5-5.5); Sodium, Blood 138 mmol/L (136-145); Total Protein, Blood 8.2 g/dL (6.4-8.2); Troponin I 0.039 ng/mL (0.000-0.040)
[2020-04-27 16:50] LABS: International Normalized Ratio 2.68; Prothrombin Time Results 27.1 Sec (9.7-11.5)
[2020-04-27] MEDS ORDERED: ESZO2 PO (17:29)
[2020-04-27] MEDS ORDERED: ESCI10 PT (17:44)
[2020-04-27] MEDS ORDERED: POTA20LUD PT (17:45)
[2020-04-27] MEDS ORDERED: Simvastatin20 MG PO (17:45)
[2020-04-27] MEDS ORDERED: LANOXIN125 MCG PT (17:45)
[2020-04-27] MEDS ORDERED: ETHACRYNIC ACID25 MG PT (17:59)
[2020-04-27] MEDS ORDERED: Bisoprolol Fumar5 MG PT (17:59)
--- NOTE | 2020-04-27 19:34 | NUR ---
ADMIT NOTE RECEIVED REPORT FROM MARY LUQUE IN ED. PT TO ROOM AT 1850. 4 PERSON ASSIST WITH SLIDER SHEET TRANSFERED PT TO BED. SPOUSE AT BEDSIDE. PT CHANGED INTO GOWN, ATTENDS CHANGED. RED AREA NOTED TO COCCYX; BLANCHABLE. BP ELEVATED; PER TELE AFIB AT 100BPM; RESP RATE 28-32 PER MIN; SPO2 >94% ON HOME DOSE OF 3L O2 VIA NC. BREATHING SHALLOW, TACHYPINC AND LABORED; PLACED IN FOLWERS POSITION. PEG TUBE IN LEFT UPPER QUADRANT; GREEN/YELLOW FOUL SMELLING DRAINAGE NOTED; REPLACED GAUZE DRESSING. REPORT GIVEN TO ONCOMING RN.
--- NOTE | 2020-04-27 21:47 | NUR ---
ASSUMED CARE OF PATIENT AT APPROXIMATELY 1900 FROM DUTCH Monsalve RN. PATIENT ARRIVED TO UNIT VIA STRETCHER SHORTLY BEFORE SHIFT CHANGE. PATIENT NONVERBAL; MAKES SOUNDS AT TIMES; PATIENT'S BEDSIDE ASSISTED WITH ADMISSION AND CONSENTS. PATIENT UNABLE TO ANSWER QUESTIONS. NO S/S OF PAIN NOTED. PATIENT COUGHING UP FROTHY DISCHARGE; PATIENT REPORTS THIS HAS BEEN OCCURING FOR PAST MONTH AND HAS INCREASES PAST FEW DAYS; PCP AWARE; SUCTION NEEDED. AFIB ON TELE; RATE OF ABOUT 105-110; OXYGEN SATURATION ABOVE 90% ON 3LPM VIA NC (BASELINE). PIV S/L. INCONTINENT OF URINE; ATTENDS IN PLACE. PATIENT CURRENLTY RESTING IN BED; CALL LIGHT IN REACH; BED IN LOWEST POSISTION; BED ALARM ON; WILL CONTINUE TO MONITOR AND ASSESS UNTIL END OF SHIFT.
[2020-04-28 01:10] LABS: BASOPHILS ABSOLUTE AUTO 0.06 K/mm3 (0.00-0.23); BASOPHILS PERCENT AUTO 1 % (0-2); EOSINOPHILS ABSOLUTE AUTO 0.02 K/mm3 (0.00-0.68); EOSINOPHILS PERCENT AUTO 0 % (0-6); Hemoglobin 10.6 g/dL (11.5-16.0); IMMATURE GRAN ABSOLUTE AUTO 0.06 K/mm3 (0.00-0.10); IMMATURE GRAN PERCENT AUTO 1 % (0-1); LYMPHOCYTES ABSOLUTE AUTO 1.16 K/mm3 (0.84-5.20); LYMPHOCYTES PERCENT AUTO 10 % (21-46); MONOCYTES ABSOLUTE AUTO 1.26 K/mm3 (0.16-1.47); MONOCYTES PERCENT AUTO 11 % (4-13); Mean Corpuscular HGB 28.1 pg (26.0-34.0); Mean Corpuscular HGB Conc 31.2 g/dL (31.5-36.5); Mean Corpuscular Volume 90 fL (80-100); Mean Platelet Volume 10.2 fL (9.1-12.4); NEUTROPHILS ABSOLUTE AUTO 9.33 K/mm3 (1.96-9.15); NEUTROPHILS PERCENT AUTO 78 % (41-73); Platelet Count 451 K/mm3 (150-400); RDW Coefficient Variation 16.5 % (11.7-14.2); RDW Standard Deviation 54.7 fL (35.1-46.3); Red Blood Cell Count 3.77 M/mm3 (3.80-5.20); White Blood Cell Count 11.89 K/mm3 (4.00-11.30)
[2020-04-28 01:30] LABS: Calcium, Blood 9.3 mg/dL (8.5-10.1); Creatinine, Blood 0.96 mg/dL (0.40-1.00); Potassium, Blood 4.2 mmol/L (3.5-5.5); Troponin I 0.055 ng/mL (0.000-0.040)
--- NOTE | 2020-04-28 06:04 | NUR ---
PATIENT MORE ALERT T/O THE SHIFT; UP TO BEDSIDE COMMODE WITH ONE ASSIST; SOME CONFUSION NOTED. PATIENT'S DAUGHTER IN LAW CALLED FOR UPDATE. PATIENT CALLED STAFF TO ROOM AT APPROXIMATELY 0550 TO REPORT SOB; RT CALLED AND BREATHING TX GIVEN. PATIENT SLEPT ABOUT EIGHT HOURS LAST NIHGT. WILL CONTINUE TO MONITOR AND ASSESS UNTIL END OF SHIFT.
[2020-04-28 07:10] LABS: International Normalized Ratio 2.4; Prothrombin Time Results 24.4 Sec (9.7-11.5)
[2020-04-28 15:35] LABS: Source, Urine Catheter
[2020-04-28 15:49] LABS: Appearance, Urine Clear (Clear); Bilirubin, Urine Neg (Neg); Blood, Urine Neg (Neg); Color, Urine Yellow (P-Yellow); Glucose Qualitative, Urine Neg (Neg); Ketones, Urine Neg (Neg); Leukocyte Esterase, Urine Neg (Neg); Nitrite, Urine Neg (Neg); Protein, Urine Neg (Neg); Specific Gravity, Urine 1.015 (1.003-1.022); Urobilinogen, Urine NORM (Normal); pH, Urine 6.5 (5.0-8.0)
--- NOTE | 2020-04-28 17:30 | NUR ---
INITIAL PAL CARE VISIT - First visit made prior to pt's being present with RN at bedside. Pt would not allow RN to use oral spray to help pt with thick oral secretions to help pt thin and get rid of them. She stated she was scared and when RN asked her what she was scared of, Elizabeth stated she "was scared it wouldn't work". Pt is very [place] at baseline and did not engage in conversation with me well. She is shaking and appears very anxious, frightened and miserable. She had a low grade fever this afternoon and at that time it was 99+. Pt tries very hard to work secretions out of her mouth but has a very weak cough when she tries to clear them from her throat. RN has provided frequent oral care and suctioning. I returned when pt's returned. 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 I reviewed a previous POLST with . Pt completed it with her PCP in 2016. It stated she wished for a "defined trial of tube feedings". I spoke to about pt's possible aspiration of secretions, despite g-tube. I asked him what Elizabeth would want for her care in light of continued deconditioning and recurrent CHF s/s. We talked about the delicate balance of benefit vs burden of tx/interventions & managing Elizabeth's heart disease. JOHN recently increased tube feedings to get her to gain weight and "be eligible" for evaluation for a TAVR surgery to tx her critical Aortic stenosis. The extra feeding and fluid may have increased her CHF s/s. Bouchra LOPEZ, in [place] advises , Porfirio and has asked for agressive medical intervention. She has not seen Elizabeth for a couple years, "maybe a couple of Christmases ago", when I asked Porfirio, how recently Bouchra had seen Elizabeth. I spoke to Porfirio about pt's cont dysphagia as he stated the g-tube was intended to be temporary until Elizabeth could get strong again and "go back to normal". appears very fatigued. He seems alert and oriented but unable to get beyond, "she has to have the tube feeding or she will starve to ". I asked Porfirio to review the chapter on tube feedings and advanced invasive care in "Hard Choices for [facility] People". The DIL has requested HH services on d/c. RN noted that the g-tube dressing had a foul odor to it when pt was admitted. Also noted secretions being suctioned may be purulent. Don is pt's only caregiver at home and I noted in record, reports that he has declined other outside help with a paid cg per CM notes. In my assessment of Elizabeth, twice today, she appears to be nearing end of life due to failure to thrive, CHF, Critical , a-fib, recurrent aspiriration pneumonia, cognitive decline, frailty. I very gently touched on this with her . He listened but did not respond. I asked if he would allow [facility] to meet with him again tomorrow and follow up on our conversation regarding appropriate goals of care for Elizabeth and he said that would be ok. I did not call the DIL because of the time difference and it would have been late at night there. Pt's is her documented surrogate decision maker and I know he relies on his sons and his DIL to help make decisions. Elizabeth does not appear to be able to participate in decision making at this time. I do not see dementia listed in her PMHistory but she is cognitively very impaired compared to her baseline a few years ago when I worked with her regularly during two or three 12 week cardiac rehab sessions. Plan: [facility] to visit daily to support pt/ in determining goals of care, s/s management, advanced care planning conversations. Pt is a limited code at this time with no CPR or Intubation desired per current orders/family request.
--- NOTE | 2020-04-28 19:48 | NUR ---
SHIFT SUMMARY PT ALERT; ORIENTED TO SELF, FAMILY AND SURROUNDING. PT RESTING IN BED DURING SHIFT; REPOSITIONED Q2 FOR COMFORT AND PRESSURE ULCER PREVENTION. PT APPEAR TO BE SLEEPING INTERMITTENTLY DURING SHIFT. PT ANXIOUS AT TIMES;WHEN ATTEMPTING TO COUGH UP SPUTUM. PT COUGHING UP THICK, WHITE MUCUS. ORAL CARE Q2-3 HOURS FOR PT COMFORT AND ASSIST WITH DISTRESS. SPO2 >90% ON 3L O2 VIA NC, AT BASELINE. PT STATED ON TUBE FEEDING PER DIETARY; EACH CARTON EQUALS 180ML OF WATER PER DIETARY; FLUID RESTRICTION OF 1500 NOTED. PT RECEIVING IV BUMEX. INCONTENT OF URINE. BM THIS EVENING. VSS. NO OTHER ACUTE CHANGES NOTED DURING SHIFT. REPORT GIVEN TO ONCOMING RN.
[2020-04-29 05:32] LABS: BASOPHILS ABSOLUTE AUTO 0.05 K/mm3 (0.00-0.23); BASOPHILS PERCENT AUTO 0 % (0-2); EOSINOPHILS ABSOLUTE AUTO 0.05 K/mm3 (0.00-0.68); EOSINOPHILS PERCENT AUTO 0 % (0-6); Hematocrit 35.6 % (33.0-51.0); IMMATURE GRAN ABSOLUTE AUTO 0.05 K/mm3 (0.00-0.10); IMMATURE GRAN PERCENT AUTO 0 % (0-1); LYMPHOCYTES ABSOLUTE AUTO 1.09 K/mm3 (0.84-5.20); LYMPHOCYTES PERCENT AUTO 7 % (21-46); MONOCYTES ABSOLUTE AUTO 1.71 K/mm3 (0.16-1.47); MONOCYTES PERCENT AUTO 11 % (4-13); Mean Corpuscular HGB Conc 30.9 g/dL (31.5-36.5); Mean Corpuscular Volume 91 fL (80-100); Mean Platelet Volume 10.4 fL (9.1-12.4); NEUTROPHILS ABSOLUTE AUTO 12.28 K/mm3 (1.96-9.15); NEUTROPHILS PERCENT AUTO 81 % (41-73); Platelet Count 471 K/mm3 (150-400); RDW Coefficient Variation 16.5 % (11.7-14.2); RDW Standard Deviation 55.3 fL (35.1-46.3); Red Blood Cell Count 3.93 M/mm3 (3.80-5.20); White Blood Cell Count 15.23 K/mm3 (4.00-11.30)
[2020-04-29 05:40] LABS: International Normalized Ratio 3.61; Prothrombin Time Results 35.9 Sec (9.7-11.5)
--- NOTE | 2020-04-29 06:20 | NUR ---
SHIFT SUMMARY: PATIENT SLEPT ONLY A FEW HOURS. PATIENT FREQUENTLY CALLS OUT "HELP ME;" PATIENT C/O INABILITY TO SWALLOW AND MOUTH DRYNESS. PATIENT GIVEN MOUTH CARE EVERY 2-4 HOURS. PATIENT ANXIOUS AND CRYING AT TIMES, SAYING "I CAN'T DO THIS ANYMORE." ATTEMPTED TO COMFORT PATIENT. OXYGEN AT 3L/MIN VIA NASAL CANNULA WITH SATS WNL; BREATH SOUNDS WITH CRACKLES AT BILATERAL BASES. RHYTHM: ATRIAL FIB. RATE 90-110'S. BP STABLE. PATIENT SPIKED FEVER LAST NIGHT OF 101.6; GIVEN TYLENOL PGT WITH RELIEF OF FEVER. PEG TUBE PATENT; PATIENT GIVEN SCHEDULED JEVITY 1.5 AND WATER FLUSH PER ORDERS. PATIENT INCONTINENT OF URINE TWO TIMES DURING THE NIGHT. SALINE LOCK TO LEFT FA PATENT. AM LABS DRAWN. AWAITING MD TO ROUND. AWAITING DAY SHIFT RN FOR HANDOFF.
[2020-04-29 06:21] LABS: Anion Gap 5 mmol/L (6-16); Blood Urea Nitrogen 48 mg/dL (8-24); Bun/Creatinine Ratio 52.9 (12.0-20.0); CO2, Blood 35 mmol/L (21-32); Calcium, Blood 9.5 mg/dL (8.5-10.1); Chloride, Blood 101 mmol/L (98-108); Creatinine, Blood 0.91 mg/dL (0.40-1.00); Glomerular Filtration Rate >60 (60-); Glucose, Blood 127 mg/dL (70-99); Magnesium, Blood 2.7 mg/dL (1.6-2.4); Phosphorus, Blood 3.7 mg/dL (2.5-4.9); Potassium, Blood 3.5 mmol/L (3.5-5.5); Sodium, Blood 141 mmol/L (136-145)
--- NOTE | 2020-04-29 08:00 | NUR ---
pt nonresponsive when nurse attempted to wake her, after shaking her arm she very slowly opened her eyes, but not making eye contact or responding in any way. notified auditor in charge and Dr. Baldwin in to see her, called pallative care nurse to come see her. lungs are clear in upper galaviz, with some crackles in the bases, resp in a hard breathing pattern with accessory muscle use, then back to even and unlabored, currently on r/a, no cough noted, hrirr, tele in place running afib per monitor, see strip, no edema noted, ppp+1, cap refill <3sec, vs stable, low grade temp. iv site is clear and patent, bt x4 hypoactive, incont of urine, attends in place, skin c/w/d, jacque ashraf, call light in reach.
--- NOTE | 2020-04-29 09:30 | NUR ---
pt was given her medications after checking residul of none, she moaned and breathing pattern changed again to the labored resp, thick white mucous draining out her mouth, she is in an upright position, was able to suction a small amount, but she clamped down on the yankar, will hold tube feedings for now.
--- NOTE | 2020-04-29 17:04 | NUR ---
Multiple visits to pt Poor tolerance this morning of peg tube meds. multiple epiesodes today of struggling with airway and increased secretions. pt opens eyes but no verbal and dieplaying some mild air hunger. spoke with pt JOHN who is anurse practitioner and arranged phone converssation with hospitalist. also had phsyician meeting with . Is is deiplaying some grief. He is not well himself and is hard of hearing. At this time he wants to wait til tomorrow and update the rest of the family. advised nursing to update shift production supervisor to contact family sooner than later if she declines.
--- NOTE | 2020-04-29 18:29 | NUR ---
tube feeds were held today after feed/meds coming out of her mouth, she has continued to be nonverbal, no further changes this shift. has been turned and changed this shift. call light in reach.
--- NOTE | 2020-04-29 20:00 | NUR ---
ASSUMED CARE: PT AWAKE IN ROOM, NOT ANSWERING QUESTIONS OR ACKNOWLEDGING MY PRESENCE. LUNG SOUNDS ARE CLEAR HOWEVER SHE IS SOB AND IS DYSPNEIC. ON 3L NC. IN ATTNEDS. BT X4 BUT HYPOACTIVE. HOLDING TF THROUGH PEG D/T ASPIRATION. PIV TO LFA PATENT AND SL. AT BEDSIDE. WILL CONTINUE TO MONITOR
[2020-04-30 03:54] LABS: BASOPHILS ABSOLUTE AUTO 0.06 K/mm3 (0.00-0.23); BASOPHILS PERCENT AUTO 0 % (0-2); EOSINOPHILS PERCENT AUTO 0 % (0-6); Hematocrit 38.5 % (33.0-51.0); Hemoglobin 11.9 g/dL (11.5-16.0); IMMATURE GRAN ABSOLUTE AUTO 0.07 K/mm3 (0.00-0.10); IMMATURE GRAN PERCENT AUTO 0 % (0-1); LYMPHOCYTES ABSOLUTE AUTO 0.98 K/mm3 (0.84-5.20); LYMPHOCYTES PERCENT AUTO 6 % (21-46); MONOCYTES ABSOLUTE AUTO 1.54 K/mm3 (0.16-1.47); MONOCYTES PERCENT AUTO 9 % (4-13); Mean Corpuscular HGB 28.3 pg (26.0-34.0); Mean Corpuscular HGB Conc 30.9 g/dL (31.5-36.5); Mean Corpuscular Volume 92 fL (80-100); Mean Platelet Volume 10.3 fL (9.1-12.4); NEUTROPHILS ABSOLUTE AUTO 14.42 K/mm3 (1.96-9.15); NEUTROPHILS PERCENT AUTO 85 % (41-73); Platelet Count 569 K/mm3 (150-400); RDW Coefficient Variation 16.6 % (11.7-14.2); RDW Standard Deviation 55.8 fL (35.1-46.3); White Blood Cell Count 17.07 K/mm3 (4.00-11.30)
[2020-04-30 04:09] LABS: International Normalized Ratio 3.51
[2020-04-30 04:15] LABS: Albumin, Blood 2.3 g/dL (3.4-5.0); Anion Gap 8 mmol/L (6-16); Blood Urea Nitrogen 54 mg/dL (8-24); Bun/Creatinine Ratio 49.1 (12.0-20.0); CO2, Blood 33 mmol/L (21-32); Calcium, Blood 9.7 mg/dL (8.5-10.1); Chloride, Blood 103 mmol/L (98-108); Glomerular Filtration Rate 50 (60-); Glucose, Blood 118 mg/dL (70-99); Magnesium, Blood 2.6 mg/dL (1.6-2.4); Phosphorus, Blood 4.2 mg/dL (2.5-4.9); Potassium, Blood 4.3 mmol/L (3.5-5.5); Sodium, Blood 144 mmol/L (136-145)
--- NOTE | 2020-04-30 05:32 | NUR ---
SHIFT SUMMARY: PT HAD DIFFICULTY SLEEPING MAJORITY OF THE NIGHT. SHE IS MORE ALERT AND ORIENTED THIS AM. IM ZYPREXA WORKED WELL FOR HER AGITATION DURING THE NIGHT. SHE IS ABLE TO ANSWER QUESTIONS. PT IS VERY AGDAAGUX, SO BATTERIES IN HER HEARING AID WERE REPLACED. THIS DEFINITELY HELPED WITH COMMUNICATION. IN AFIB. HR REMAINS ELEVATED. SBP STABLE. LUNG SOUNDS CLEAR. WOB APPEARS TO HAVE GOTTEN BETTER. ON 3L NC. SPO2 >90%. IS INCONTINENT AND IN ATTTENDS. NO BM THIS SHIFT. CONTINUING TO HOLD TF. PIV IN LFA IS PATENT AND SL. WILL PASS REPORT TO ONCOMING SHIFT
--- NOTE | 2020-04-30 07:46 | NUR ---
pt awake and responding this am, no s/s of distress, sitting up in bed, interacting with staff, lungs are clear a bit dim in bases, resp even and unlabored, no cough noted, hrirr, tele in place running afib per monitor, see strip, no edema noted, ppp+2, cap refill <3sec, vs stable, afebrile, iv site to lac clear and patent, btx4, abd flat soft nontender, peg tube in place gently flushed with 20cc water, she tolerated well, v.s. stable, afebrile, skin has dark skin to le, pink coccyx, maew, general weakness, jacque, call light in reach.
--- NOTE | 2020-04-30 09:35 | NUR ---
pt awake, conversing, asking to have her feed, as she's hungry. flushed peg tube with 20mls, she is tolerating well, gave 1 can of feed very slowly with her sitting straight up, as she is tolerating this we went ahead with her medications, without diff. keeping her upright for a while after feed. call light in reach.
--- NOTE | 2020-04-30 12:32 | NUR ---
pt had a bed bath, coccyx is red, educated her about staying off of it, but when turned she moves herself back to her back. mepilex placed on for protection, will place egg create on matress, no further changes. call light in reach.
--- NOTE | 2020-04-30 16:32 | NUR ---
spouce in room, pt is very sleepy, did not wake through v.s. febrile at 99.9, gently flushed peg tube after sitting her upright, she sarted her labored breathing pattern, no residual noted, put feed on a pump so it could be controlled and go in slow, every time was started she would labored breath, when stopped her breathing would calm. this was stopped. pallative care nurse in to speak to spouce. call light in reach.
--- NOTE | 2020-04-30 18:26 | NUR ---
pt resting in bed. no further changes since not tolerating feed, spouce left for home. call light in reach.
[2020-05-01 04:02] LABS: BASOPHILS ABSOLUTE AUTO 0.07 K/mm3 (0.00-0.23); BASOPHILS PERCENT AUTO 1 % (0-2); EOSINOPHILS ABSOLUTE AUTO 0.03 K/mm3 (0.00-0.68); EOSINOPHILS PERCENT AUTO 0 % (0-6); Hematocrit 39.4 % (33.0-51.0); Hemoglobin 11.6 g/dL (11.5-16.0); IMMATURE GRAN ABSOLUTE AUTO 0.05 K/mm3 (0.00-0.10); IMMATURE GRAN PERCENT AUTO 0 % (0-1); LYMPHOCYTES ABSOLUTE AUTO 1.08 K/mm3 (0.84-5.20); LYMPHOCYTES PERCENT AUTO 8 % (21-46); MONOCYTES ABSOLUTE AUTO 1.43 K/mm3 (0.16-1.47); MONOCYTES PERCENT AUTO 11 % (4-13); Mean Corpuscular HGB Conc 29.4 g/dL (31.5-36.5); Mean Corpuscular Volume 95 fL (80-100); Mean Platelet Volume 10.5 fL (9.1-12.4); NEUTROPHILS ABSOLUTE AUTO 10.67 K/mm3 (1.96-9.15); NEUTROPHILS PERCENT AUTO 80 % (41-73); Platelet Count 508 K/mm3 (150-400); RDW Coefficient Variation 16.9 % (11.7-14.2); RDW Standard Deviation 58.6 fL (35.1-46.3); Red Blood Cell Count 4.15 M/mm3 (3.80-5.20); White Blood Cell Count 13.33 K/mm3 (4.00-11.30)
[2020-05-01 04:16] LABS: International Normalized Ratio 3.68; Prothrombin Time Results 36.6 Sec (9.7-11.5)
[2020-05-01 04:30] LABS: Albumin, Blood 2.1 g/dL (3.4-5.0); Anion Gap 5 mmol/L (6-16); Blood Urea Nitrogen 65 mg/dL (8-24); Bun/Creatinine Ratio 59.1 (12.0-20.0); CO2, Blood 34 mmol/L (21-32); Calcium, Blood 9.1 mg/dL (8.5-10.1); Chloride, Blood 110 mmol/L (98-108); Glomerular Filtration Rate 50 (60-); Glucose, Blood 146 mg/dL (70-99); Magnesium, Blood 3.3 mg/dL (1.6-2.4); Phosphorus, Blood 3.5 mg/dL (2.5-4.9); Potassium, Blood 3.7 mmol/L (3.5-5.5); Sodium, Blood 149 mmol/L (136-145)
--- NOTE | 2020-05-01 05:41 | NUR ---
END OF SHIFT SUMMARY NO ACUTE CHANGES THIS SHIFT. VSS. PT REMAINS SOMNOLENT, LARGELY NONRESPONSIVE. HAS OPENED EYES OCCASIONALLY AND HAS MOANED A COUPLE TIMES. PT REMAINS AFIB. ON 3LNC, SPO2 >92%. PEG TUBE INTACT, PT TOLERATED A VERY SLOW BOLUS FEED. MEPILEX TO SACRUM REMAINS. PT BEING REPOSITIONED BY STAFF. DAUGHTER IN LAW UPDATED ON STATUS. FLUIDS INFUSING AT 50MLS/HR. WILL CONTINUE TO MONITOR UNTIL SHIFT CHANGE.
--- NOTE | 2020-05-01 08:00 | NUR ---
pt laying in bed unresponsive. she is intermitantly having a different breathing pattern, labored, then will relax, she is trembling all over, and clenching her teeth, her spouce was called by charge authorizer, called [facility] pallative care and eleanor, Dr. Baldwin, will hold tube feed and meds for now, v.s stable, but she is febrile at 100.8 with no covers on, recieved order for tylenol pr, her lungs are clear, dim in bases, not really tolerating being moved, is positioned with pillows for comfort, she is running afib in the low 100's, iv site is clear and patent, infusing ns as ordered, skin has pink coccyx, all ext are flacid, not opening eyes. call light in reach.
--- NOTE | 2020-05-01 10:56 | NUR ---
Call back - Pt's spouse Don encouraged to reflect on family's life together. He responds well and then becomes tearful briefly. Don able to verbalize and reference that "things are getting close." In serparate interaction, he explains one of his sons will be flying in in a couple of days. Pt's son Marcel enters and speaks to his mother. Marcel calls a brother who then speaks to pt via phone. Engaged with Marcel re: pt's EOL. Marcel responds with "Yes, I know we're going to have to make some decisions soon." It appears Marcel has an understanding the pt is close to . Pastoral presence, audible prayer, words of comfort provided.
--- NOTE | 2020-05-01 12:07 | NUR ---
pt family here, Dr. Baldwin spoke with them, spouce is ok to give her some ativan this was given, she is relaxed now. family doesn't want her to be repositioned at this time. call light in reach.
--- NOTE | 2020-05-01 14:51 | NUR ---
Called to bedside pt minimally responsve clenching jaw airway stress noted. pt has temp nursing sulaiman rivero positioned pt for comfort and neck supported to opimize [facility]ot[facility] and updated family of further decline. pt DIL called and review of her care and symptoms advised her of symptoms and airway stress. Suggested comfort care. Physician also spoke with family. is resistant to giving any sedating medications. He fainall agreed and ativan given wiht relief. pt jaw and neck more comfortable and breathing is less strained. Pt son in to see patient and they are at bed side. Brief visitits is struggling with acceptance and decisions. medical resident in to see patient and and offer prayer. Will continue visits to assist with acceptance and a plan.
--- NOTE | 2020-05-01 18:06 | NUR ---
pt devloping more stress and agttion and jaw tightening. Nursing called she discussed roxinol with again with . Called hospitalist they are still waiting on comfort. Will do adtivan and scopolamine and wait. Me tiwhson and to reive medication orders and supportive visit advised that as the nigh goes if she gets more symptomatic it is time for comfort orders and some roxinol. They are griefing and struggling but reaching acceptance. Praised for all his dilligent care and love. He was comforted by the chaplian visit advised they are available at all times for support.
--- NOTE | 2020-05-01 18:40 | NUR ---
pt has been resting peacefully today, spouce and son in room with her, this evening she opened her eyes slightly, agnieszka feels that she is trying to say something, spoke with him about roxinol or ativan, he was ok with giving it. spoke to pallative care nurse, she came in to speak with them again, recieved orders for ativan prn. keeping her clean and dry, call light in reach.
--- NOTE | 2020-05-02 05:38 | NUR ---
PROVIDER PT NOTED TO HAVE SOME AGONAL BREATHING AND INCREASING AGITATION. DR UPDATED ON POT STATUS, DISCUSSION REGARDING COMFORT CARE, AND FAMILY DECISIONS. FAMILY HAD BEEN CALLED AND UPDATED ON CONDITION. FAMILY TO ROOM. WITH FURTHER DISCUSSION, FAMILY ELECTED TO MAKE PT DNR INSTEAD OF LIMITED CODE. WITH FURTHER EDUCATION AND DISCUSSION, PT ELECTED TO PLACE PT ON COMFORT CARE. DR DRUMMOND NOTIFIED OF THESE DECISIONS. TO PLACE ORDERS. DNR BAND PLACED ON PT.
--- NOTE | 2020-05-02 05:45 | NUR ---
Call back - Pt's spouse Porfirio and son Marcel present. Ease with situation: Porfirio states "I don't want to see her in pain." Per son Marcel, Porfirio just needs assurance from family that it's time to place pt on comfort care. Porfirio steps out to call JOHN who is an RN. He returns and updates Marcel that they believe she should be comfort care. Marcel assures his dad he believes it's time too. Updated casino cashier manager. Provided pastoral presence, room for reminiscing, and verbal prayer for comfort.
--- NOTE | 2020-05-02 06:15 | NUR ---
END OF SHIFT SUMMARY SEE PROVIDER NOTE AND LOAN SECRETARY NOTE. BGINNING OF SHIFT, PT OBTUNDED AND PREDOMINANTLY UNRESPONSIVE. T/O SHIFT PT HAS FLUCTUATED FROM MOANING, TO OPENING EYES AND MUTTERING SMALL WORDS, TO RAISING HANDS AND SHAKING PRESENTING IF SHE WAS IN PAIN. ATIVAN IV HAS BEEN HELPFUL IN PROVIDING RELIEF PRE COMFORT CARE. TUBE FEEDING GIVEN SLOWLY AT BEGINNING OF SHIFT THROUGH PEG TUBE ORDERED. PT TOLERATED WELL. PT'S BREATHING HAS FLUCTUATED FROM SLOW AND RHYTHMIC TO BORDERLINE JASON BARBER, TO PERIODS OF SEVERE APNEA. PT REMAINS IN AFIB. VSS BEFORE BEING DC'D. SEE PROVIDER NOTE, PT NOW COMFORT CARE. AWAITING MD ORDERS.
--- NOTE | 2020-05-02 07:46 | NUR ---
ASSUMED CARE: PT IS COMFORT CARE. RESPIRATIONS EVEN AND APPEARS COMFORTABLE AT THIS TIME. FAMILY AT BEDSIDE. NO FURTHER NEEDS AT THIS TIME.
--- NOTE | 2020-05-02 10:26 | NUR ---
DR GOLD WENT INTO ROOM AND REQUESTED ROXINOL FOR PT. ADMINISTERED ROXINOL, ATIVAN AND ATROPINE FOR PT DUE TO HER GASPING AND APPEARING ANXIOUS WITH SECRETIONS NOTED. FAMILY AT BEDSIDE.
--- NOTE | 2020-05-02 13:14 | NUR ---
CNAS CHANGED PT'S ATTENDS AND PT BECAME VERY ANXIOUS DURING THIS. MEDICATED FOR THIS. WILL MONITOR FURTHER. PT'S DIL CALLED FOR UPDATE. THIS RN ATTEMPTED TO CALL BACK BUT NO ANSWER
--- NOTE | 2020-05-02 18:11 | NUR ---
SHIFT SUMMARY: PT REMAINS COMFORT CARE WITH FREQUENT MEDICATIONS. IM ZYPREXA GIVEN ONCE FOR AGITATION AND PT APPEARS COMFORTABLE SINCE. SHANKAR CATH PLACED DUE TO INCREASED AGITATION WITH ATTENDS CHANGES. PALLIATIVE CARE AT BEDSIDE OFF AND ON THIS SHIFT TO ASSIST WITH MEDICATIONS AND EDUCATING FAMILY. PT APPEARS COMFORTABLE AT THIS TIME.
--- NOTE | 2020-05-02 22:41 | NUR ---
CARE ASSUMED REPORT RECEIVED, CARE ASSUMED AT 1900 FROM MARY JUDD. AT CHANGE OF SHIFT, AT BEDSIDE. PT RESTLESS, WITH GRIMACED BROW, BREATHING IRREGULAR AND LABORED. DISCUSSED COMFORT MANAGEMENT OPTIONS WITH AND AGREEABLE TO PLAN. PT MEDICATED WITH MORPHINE AND ATIVAN. WHILE MEDICATING, TIME SPENT INTERACTING WTIH PT AND . TEARFULLY REFLECTING ON PT'S LIFE. SUPPORT PROVIDED TO BOTH AND PT. PT APPEARS TO CALM WITH THERAPEUTIC TOUCH AND VERBAL COMMUNICATION. ALSO HOLDING PT'S HAND INTERMITTENLY. WHILE AT BEDSIDE, PT HAS INTERMITTENT PERIODS OF SEVERE GASPING FOR AIR, THOUGH HER AIRWAY IS SEVERELY RESTRICTED. PROVIDED WITH SUCTION, SMALL AMOUNT OF SECRETIONS OBTAINED. MINIMIZED CARES AT INITIAL INTERACTION TO MINIMIZE PATIENT DISCOMFORT. PT EVENTUALLY RELAXED AND SINCE MEDICATING PT HAS BEEN RESTING QUIETLY, RESPIRATIONS SHALLOW AND UNLABORED. WENT HOME APPROX 2100. DISCUSSED PLAN AND EXPECTATIONS WITH . HE PREFERS TO BE CALLED ONLY IF PT PASSES, OTHERWISE HIS SON WILL BE BACK EARLY IN THE MORNING TO BE WITH HIS MOTHER. PT TOLERATED 2200 TURNS/CARES WITHOUT INCREASED SIGN OF DISCOMFORT. SHANKAR CATHETER SECURED AND DRAINING.
--- NOTE | 2020-05-03 05:54 | NUR ---
TIME OF AT 0420, ROUNDED ON PT TO COMPLETE REPOSITIONING, AND NOTED THAT PT TAKING BIG DEEP BREATHS APPROX EVERY 1-2 MINUTES. SAT WITH PATIENT THEY BECAME MORE AND MORE SHALLOW. PT NOTED TO STOP BREATHING COMPLETELY AT 0430. NO HEART BEAT PRESENT. NOTIFIED PHYSICIAN AND FAMILY. POST MORTEM CARE COMPLETED BY PCT'S. PTS FATHER AND SON TO BEDSIDE AT THIS TIME. CHAPLAN ALSO TO BEDSIDE. FINAL DISCHARGE BEING COMPLETED BY OLINDA HUITRON RN.
--- NOTE | 2020-05-03 06:49 | NUR ---
Call back TOD - Spouse Porfirio and son Marcel known from previous visits. Both were sitting beside with the . Space given for reflection and both reminisce through stories and humorous anecdotes. Marcel explains "yesterday was hard" as it took some time for pt to be comfortable. Porfirio reports finding comfort in knowing pt passed in peace. Psalmic selection was read followed by a prayer to bring comfort to the family and to honor the pt's life. Porfirio selects [place] in [place] as the home. Closing remarks were made. All appeared to be greiving appropriately.
== END 2020-05-03 07:58 ==
LOC: ER 14:15 → PCU 16:38
PROVIDERS: Emergency Medicine; Nurse Practitioner Acute Care; ADMIT Internal Medicine
DX: I50.33 Acute on chronic diastolic (congestive) heart failure (principal); J96.22 Acute and chronic respiratory failure with hypercapnia; I21.A1 Myocardial infarction type 2; J96.21 Acute and chronic respiratory failure with hypoxia; R65.11 Systemic inflammatory response syndrome (SIRS) of non-infectious origin with acute organ dysfunction; J69.0 Pneumonitis due to inhalation of food and vomit; E43 Unspecified severe protein-calorie malnutrition; I48.11 Longstanding persistent atrial fibrillation; I45.2 Bifascicular block; Z68.1 Body mass index [BMI] 19.9 or less, adult; I25.2 Old myocardial infarction; Z79.01 Long term (current) use of anticoagulants; Z51.5 Encounter for palliative care; Z95.1 Presence of aortocoronary bypass graft; Z87.891 Personal history of nicotine dependence; I35.0 Nonrheumatic aortic (valve) stenosis; E03.9 Hypothyroidism, unspecified; R62.7 Adult failure to thrive; Z93.1 Gastrostomy status; R68.2 Dry mouth, unspecified; Z85.3 Personal history of malignant neoplasm of breast; I48.91 Unspecified atrial fibrillation
CPT/HCPCS: 36415; 36600; 70450; 71045; 80048; 80053; 80069; 81003; 82803; 83605; 83735; 83880; 84100; 84443; 84484; 85025; 85610; 87040; 93005; 93010; 94640; 94760; 94762; 99285-25; A9270; J0696; J1650; J2060; J7030